=== PATIENT | male | born 1975 | race Hispanic/Latino ===

== ENCOUNTER 2023-10-20 07:44 | Inpatient (IN) | payer BC ==
[2023-10-20] MEDS ORDERED: ONDANSETRON 4 MG/2 ML VIAL ONE ×2 (08:10→12:23)
[2023-10-20] MEDS ORDERED: MORPHINE 4 MG/ML SYR ONE (08:10)
[2023-10-20] MEDS ORDERED: FAMOTIDINE 20 MG/2 ML VIAL IV ONE (08:11)
[2023-10-20] MEDS ORDERED: NA CHLORIDE 0.9% 1,000 ML ONE (08:11)
[2023-10-20 08:31] LABS: Albumin 3.3 g/dL (3.4-5.0); Albumin/Globulin Ratio 0.7 (1.1-1.8); Anion Gap 9.9 mEq/L (5.0-15.0); Bilirubin Total 1.5 mg/dL (0.2-1.0); Potassium 3.9 mEq/L (3.5-5.1); Protein, Total 8.3 g/dL (6.4-8.2)
[2023-10-20 08:38] LABS: Absolute Lymphocytes (CBC) 1.1 K/uL (0.7-4.9); Absolute Monocytes 1.4 K/uL (0.1-1.3); Absolute Neutrophil 18.8 K/uL (1.8-8.0); Basophils % 0.1 % (0-1.3); Hematocrit 42.9 % (39.6-49.0); Hemoglobin 14.3 g/dL (13.6-17.9); Lymphocytes % 5.3 % (15.3-44.8); MCH 30.1 pg (27.0-35.0); MCHC 33.3 g/dL (32.0-36.0); MCV 90.5 fL (80-100); Monocytes % 6.6 % (3.3-12.3); Platelets 242 thou/uL (152-406); RBC Red Blood Cell Count 4.74 M/uL (4.33-5.43); Red Cell Distribution Width 14.3 % (12.1-15.2)
[2023-10-20] MEDS ORDERED: IBUPROFEN 400 MG TAB ONE (08:53)
--- NOTE | 2023-10-20 09:13 | RAD REPORT ---
EXAM DESCRIPTION: CT - Abdomen Pelvis W Contrast - 10/20/2023 8:32 am CLINICAL HISTORY: Abdominal pain COMPARISON: none. TECHNIQUE: Computed axial tomography of the abdomen pelvis was obtained. 100 cc Isovue-300 was admin istered intravenously. Oral contrast was not requested which limits evaluation of bowel and appendix All CT scans are performed using dose optimization technique as appropriate and may include automated exposure control or mA/KV adjustment according to patient size. FINDINGS: Right lower lobe atelectasis The gallbladder is distended. Small amount of air is present within the gallbladder. Stranding is pre sent within the adjacent fat. Liver, spleen, pancreas, adrenals and kidneys unremarkable Normal appendix The wall of the distal descending colon/proximal sigmoid colon is thickened with mild to moderate str anding within the adjacent fat. Diverticula stem from the colon. IMPRESSION: Distended gallbladder containing air. Stranding within the adjacent fat. This probably i ndicates emphysematous cholecystitis Mild to moderate stranding adjacent to the distal descending colon/proximal sigmoid colon likely dive rticulitis. A colonic neoplasm although possible is considered less likely. Followup is recommended
--- NOTE | 2023-10-20 09:14 | RAD REPORT ---
EXAM DESCRIPTION: Laurie Single View10/20/2023 8:34 am CLINICAL HISTORY: Fever COMPARISON: none FINDINGS: The patient is in a poor degree of inspiration. Right lower lobe atelectasis present. Left lung appears clear. Heart is normal size
[2023-10-20 09:26] LABS: Blood Morphology Comment NOT SEEN (NOT SEEN); Platelet Estimate ADEQ; White Blood Cell Scan OK (OK)
--- NOTE | 2023-10-20 09:29 | RAD REPORT ---
EXAM DESCRIPTION: US - Abdomen Exam Limited - 10/20/2023 8:54 am CLINICAL HISTORY: Abdominal pain. COMPARISON: CT abdomen same date FINDINGS: Gallbladder is distended. A gallstone is not visualized. There is stranding within the adj acent fat. Small amount of air is present within the gallbladder. Limited evaluation the biliary tree secondary to overlying bowel gas with no gross abnormality IMPRESSION: Gallbladder distention. Stranding within the adjacent fat and air within the gallbladder may indicate emphysematous cholecyst itis
--- NOTE | 2023-10-20 10:00 | ER ---
Nurse's Notes [facility] Name: Juan Manuel Arciniega Jr Age: 47 yrs Sex: Male : 1975 Arrival Date: 10/20/2023 Time: 07:44 Bed 19 Private MD: Derek Kern C Diagnosis: Acute cholecystitis-emphysematous Presentation: 10/19 07:47 Chief complaint: Patient states: RUQ pain that began on Monday after eating fish aa5 tacos, vomited Monday night and no vomiting since then. Pt appears anxious during triage. 07:47 Coronavirus screen: At this time, the client does not indicate any symptoms associated aa5 with coronavirus-19. Ebola Screen: Patient denies travel to an Ebola-affected area in the 21 days before illness onset. Initial Sepsis Screen: Does the patient meet any 2 criteria? HR > 90 bpm. Does the patient have a suspected source of infection? No. Patient's initial sepsis screen is negative. Risk Assessment: Do you want to hurt yourself or someone else? Patient reports no desire to harm self or others. Onset of symptoms was September 2023. 07:47 Method Of Arrival: Ambulatory aa5 07:47 Acuity: SYLWIA 3 aa5 Historical: - Allergies: 07:47 No Known Allergies; aa5 - PMHx: 07:47 Anxiety; aa5 - PSHx: 07:47 None; aa5 - Immunization history:: Adult Immunizations unknown. - Social history:: Smoking status: Reported history of juuling and/or vaping. - Family history:: not pertinent. - Hospitalizations: : No recent hospitalization is reported. Screenin:23 [facility] ED Fall Risk Assessment (Adult) History of falling in the last 3 months, db including since admission No falls in past 3 months (0 pts) Confusion or Disorientation No (0 pts) Intoxicated or Sedated No (0 pts) Impaired Gait No (0 pts) Mobility Assist Device Used No (0 pt) Altered Elimination No (0 pt) Score/Fall Risk Level 0 - 2 = Low Risk Oriented to surroundings, Maintained a safe environment. Abuse screen: Denies threats or abuse. Denies injuries from another. Nutritional screening: No deficits noted. Tuberculosis screening: No symptoms or risk factors identified. Assessment: 08:00 General: Appears in no apparent distress. uncomfortable, Behavior is calm, cooperative. db Pain: Complains of pain in abdomen. Neuro: Level of Consciousness is awake, alert, obeys commands, Oriented to person, place, time, situation, Moves all extremities. Speech is normal. Cardiovascular: No deficits noted. Respiratory: Reports DIFFICULTY BREATHING DUE TO PAIN Airway is patent Respiratory effort is even, unlabored, Respiratory pattern is regular, symmetrical. GI: Abdomen is non-distended, obese, Bowel sounds present X 4 quads. Abd is soft Reports lower abdominal pain, upper abdominal pain, Patient currently denies diarrhea, nausea, vomiting. : No deficits noted. No signs and/or symptoms were reported regarding the genitourinary system. EENT: No deficits noted. No signs and/or symptoms were reported regarding the EENT system. Derm: No deficits noted. No signs and/or symptoms reported regarding the dermatologic system. Musculoskeletal: No deficits noted. No signs and/or symptoms reported regarding the musculoskeletal system. 08:00 Pain: Pain currently is 8 out of 10 on a pain scale. db 08:20 Reassessment: Patient appears in no apparent distress at this time. Patient and/or db family updated on plan of care and expected duration. Pain level reassessed. Patient is alert, oriented x 3, equal unlabored respirations, skin warm/dry/pink. 08:57 Reassessment: Patient appears in no apparent distress at this time. Patient and/or db family updated on plan of care and expected duration. Pain level reassessed. Patient is alert, oriented x 3, equal unlabored respirations, skin warm/dry/pink. Patient states feeling better. Patient states symptoms have improved. Pain: Pain currently is 2 out of 10 on a pain scale. 09:00 Reassessment: Patient appears in no apparent distress at this time. Patient and/or db family updated on plan of care and expected duration. Pain level reassessed. Patient is alert, oriented x 3, equal unlabored respirations, skin warm/dry/pink. 10:00 Reassessment: Patient appears in no apparent distress at this time. Patient and/or db family updated on plan of care and expected duration. Pain level reassessed. Patient is alert, oriented x 3, equal unlabored respirations, skin warm/dry/pink. General: Appears in no apparent distress. comfortable, Behavior is calm, cooperative. 11:00 Reassessment: Patient appears in no apparent distress at this time. Patient and/or db family updated on plan of care and expected duration. Pain level reassessed. Patient is alert, oriented x 3, equal unlabored respirations, skin warm/dry/pink. 11:58 Reassessment: Patient appears in no apparent distress at this time. Patient and/or db family updated on plan of care and expected duration. Pain level reassessed. Patient is alert, oriented x 3, equal unlabored respirations, skin warm/dry/pink. [employer] AT BEDSIDE QUESTIONS ANSWERED AND REPORT GIVEN. 11:58 Reassessment: Patient appears in no apparent distress at this time. Patient and/or db family updated on plan of care and expected duration. Pain level reassessed. Patient is alert, oriented x 3, equal unlabored respirations, skin warm/dry/pink. General: Appears in no apparent distress. comfortable. Vital Signs: 07:47 BP 126 / 76; Pulse 120; Resp 20 S; Temp 99(O); Pulse Ox 95% on R/A; Weight 127.01 kg aa5 (R); Height 5 ft. 9 in. (R); Pain 7/10; 08:00 BP 134 / 81; Pulse 111; Resp 20; Pulse Ox 95% ; db 09:30 BP 121 / 84; Pulse 104; Resp 18; Pulse Ox 95% on R/A; db 10:30 BP 124 / 86; Pulse 94; Resp 18; Pulse Ox 95% on R/A; db 11:30 BP 103 / 68; Pulse 93; Resp 20; Pulse Ox 95% ; db 07:47 Body Mass Index 41.35 (127.01 kg, 175.26 cm) aa5 07:47 Pain Scale: Adult aa5 Henrique Coma Score: 08:00 Eye Response: spontaneous(4). Motor Response: obeys commands(6). Verbal Response: db oriented(5). Total: 15. ED Course: 07:47 Patient arrived in ED. rg4 07:47 Derek Kern MD is Private Physician. rg4 07:47 Darion Alcazar MD is Attending Physician. rn 07:47 Arm band placed on Patient placed in an exam room, on a stretcher. aa5 08:00 Triage completed. aa5 08:00 Lisa Isaacs, RONI is Primary Nurse. db 08:08 Initial lab(s) drawn, by me, sent to lab. Inserted saline lock: 20 gauge in right db antecubital area, using aseptic technique. Blood collected. 08:08 X-ray(s) taken. RN MOBILE AT BEDSIDE. db 08:23 Patient has correct armband on for positive identification. Bed in low position. Call db light in reach. Side rails up X2. Pulse ox on. NIBP on. 08:23 Provided Education on: CT, BLOOD DRAW, PAIN MEDICATIONS. db 08:[address] via wheelchair. db 08:26 Patient maintains SpO2 saturation greater than 95% on room air. db 08:34 CT Abd/Pelvis - IV Contrast Only In Process Unspecified. EDMS 08:36 XRAY Chest (1 view) In Process Unspecified. EDMS 08:55 US Abdomen Limited In Process Unspecified. EDMS 08:[address] from [address]. db 09:59 Derek Kern MD is Hospitalizing Provider. rn 11:00 Awaiting surgery. db 11:00 No provider procedures requiring assistance completed. Patient admitted, IV remains in db place. Administered Medications: 08:12 Drug: NS 0.9% IV 1000 ml IV at 1 bolus Per protocol; 1000 mL bolus Route: IV; Rate: 1 db bolus; Site: right antecubital; 12:02 Follow up: Response: No adverse reaction; IV Status: Completed infusion; IV Intake: db 1000ml 08:16 Drug: Ondansetron IVP 4 mg IVP once; over 2 minutes Route: IVP; Site: right antecubital;db 12:02 Follow up: Response: No adverse reaction db 08:16 Drug: morphine IVP or IV 4 mg IVP once over 4 mins Route: IVP; Infused Over: 4 mins; db Site: right antecubital; 12:02 Follow up: Response: No adverse reaction db 08:17 Drug: Famotidine IVP 20 mg IVP once; dilute with 10 mL 0.9% NaCl; give over 2 minutes db Route: IVP; Site: right antecubital; 12:02 Follow up: Response: No adverse reaction db 08:55 Drug: Ibuprofen PO 800 mg PO once Route: PO; db 12:01 Follow up: Response: No adverse reaction db 10:33 Drug: Piperacillin-Tazobactam IVPB 3.375 grams IVPB once over 60 mins; (mix in NS 100 db mL) Route: IVPB; Infused Over: 60 mins; Site: right antecubital; 12:01 Follow up: Response: No adverse reaction; IV Status: Completed infusion; IV Intake: db 100ml Medication: 11:00 VIS not applicable for this client. db Intake: 12:01 IV: 100ml; Total: 100ml. db 12:02 IV: 1000ml; Total: 1100ml. db Outcome: 09:59 Decision to Hospitalize by Provider. rn 12:00 Admitted to OR accompanied by nurse, via stretcher, db 12:00 Condition: stable 12:00 Instructed on the need for admit, 12:04 Patient left the ED. db Signatures: Dispatcher [employer] EDMS Darion Alcazar MD MD rn Calderon, Audri RN RN [email or web address] Trena Polk rg4 Lisa Isaacs RN RN db Corrections: (The following items were deleted from the chart) 08:00 07:47 BP 126 / 76; Pulse 120bpm; Resp 20bpm; Spontaneous; Pulse Ox 95% RA; Temp 99F aa5 Oral; 127.01 kg Reported; Height 5 ft. 9 in. Reported; BMI: 41.3; aa5 08:57 08:00 General: Appears in no apparent distress. uncomfortable, Behavior is calm, db cooperative, db 08:58 08:00 Respiratory: Reports DIFFICULTY BREATHING DUE TO PAIN Airway is patent db Respiratory effort is even, unlabored, Respiratory pattern is regular, symmetrical, db 12:01 12:00 Awaiting surgery, db db
--- NOTE | 2023-10-20 10:00 | EDPHYS ---
Physician Documentation [facility] Name: Juan Manuel Arciniega Jr Age: 47 yrs Sex: Male : 1975 Arrival Date: 10/20/2023 Time: 07:44 Bed 19 Private MD: Derek Kern C ED Physician Darion Alcazar HPI: 10/19 07:59 This 47 yrs old Male presents to ER via Unassigned with complaints of rn Abdominal Pain. 07:59 The patient presents with abdominal pain in the right upper quadrant. Onset: The rn symptoms/episode began/occurred 2 day(s) ago. The symptoms do not radiate. Associated signs and symptoms: Pertinent positives: nausea and vomiting, fever, Pertinent negatives: blood in stools, chest pain. The symptoms are described as sharp, stabbing. Modifying factors: The symptoms are alleviated by nothing, the symptoms are aggravated by pressure. Severity of pain: At its worst the pain was moderate in the emergency department the pain is unchanged. The patient has not experienced similar symptoms in the past. Patient reports right upper quadrant abdominal pain that began 2 days ago after eating shrimp tacos. Patient states pain is intermittent, associated with single episode of vomiting, fever present. Reports pain in abdomen with deep breath. No cough or chest pain.. Historical: - Allergies: 07:47 No Known Allergies; aa5 - PMHx: 07:47 Anxiety; aa5 - PSHx: 07:47 None; aa5 - Immunization history:: Adult Immunizations unknown. - Social history:: Smoking status: Reported history of juuling and/or vaping. - Family history:: not pertinent. - Hospitalizations: : No recent hospitalization is reported. ROS: 07:59 Constitutional: Positive for fever Cardiovascular: Negative for chest pain, rn palpitations, and edema, Respiratory: Negative for shortness of breath, cough, wheezing Abdomen/GI: Positive for right upper quadrant abdominal pain and vomiting MS/Extremity: Negative for injury and deformity, Skin: Negative for injury, rash, and discoloration, Neuro: Negative for headache, weakness, numbness, tingling, and seizure, Exam: 07:59 Constitutional: This is a well developed, well nourished patient who is awake, alert, rn appears anxious Head/Face: Normocephalic, atraumatic. Cardiovascular: Tachycardic, regular Respiratory: Mild tachypnea, diminished breath sounds right lower lung khanna Abdomen/GI: Soft, positive right upper quadrant tenderness and guarding, no peritoneal signs MS/ Extremity: Pulses equal, no cyanosis. Neuro: Awake and alert, GCS 15 Vital Signs: 07:47 BP 126 / 76; Pulse 120; Resp 20 S; Temp 99(O); Pulse Ox 95% on R/A; Weight 127.01 kg aa5 (R); Height 5 ft. 9 in. (R); Pain 7/10; 08:00 BP 134 / 81; Pulse 111; Resp 20; Pulse Ox 95% ; db 09:30 BP 121 / 84; Pulse 104; Resp 18; Pulse Ox 95% on R/A; db 10:30 BP 124 / 86; Pulse 94; Resp 18; Pulse Ox 95% on R/A; db 11:30 BP 103 / 68; Pulse 93; Resp 20; Pulse Ox 95% ; db 07:47 Body Mass Index 41.35 (127.01 kg, 175.26 cm) aa5 07:47 Pain Scale: Adult aa5 Barney Coma Score: 08:00 Eye Response: spontaneous(4). Motor Response: obeys commands(6). Verbal Response: db oriented(5). Total: 15. MDM: 07:47 Patient medically screened. rn 09:54 Differential diagnosis: appendicitis, bowel obstruction, cholecystitis, Cholelithiasis, rn diverticulitis, gastritis, non-specific abd pain, pancreatitis, Peptic Ulcer Disease. Data reviewed: vital signs, nurses notes, lab test result(s), radiologic studies, CT scan, ultrasound, and as a result, I will admit patient. Consideration of Admission/Observation Patient was admitted/placed on observation. Escalation of care including admission/observation considered. Counseling: I had a detailed discussion with the patient and/or guardian regarding the historical points, exam findings, and any diagnostic results supporting the discharge/admit diagnosis, lab results, radiology results, the need for further work-up and treatment in the hospital. 10/19 07:56 Order name: CBC with Diff; Complete Time: 09:43 rn 10/19 07:56 Order name: CMP; Complete Time: 08:36 rn 10/19 07:56 Order name: Lipase; Complete Time: 08:36 rn 10/19 08:44 Order name: CBC Smear Scan; Complete Time: 09:43 EDMS 10/19 09:44 Order name: Blood Culture Adult (2) rn 10/19 09:44 Order name: Lactate w/ 2H reflex if indic.; Complete Time: 10:51 rn 10/19 09:44 Order name: Protime (+inr); Complete Time: 10:51 rn 10/19 09:44 Order name: Ptt, Activated; Complete Time: 10:51 rn 10/19 07:56 Order name: CT Abd/Pelvis - IV Contrast Only; Complete Time: 09:43 rn 10/19 07:56 Order name: US Abdomen Limited; Complete Time: 09:43 rn 10/19 07:56 Order name: XRAY Chest (1 view); Complete Time: 09:43 rn 10/19 09:44 Order name: EKG; Complete Time: 09:45 rn 10/19 11:34 Order name: CONS Physician Consult EDAZ 10/19 07:56 Order name: IV Saline Lock; Complete Time: 08:18 rn 10/19 07:56 Order name: Labs collected and sent; Complete Time: 08:18 rn 10/19 09:44 Order name: Accucheck; Complete Time: 10:27 rn 10/19 09:44 Order name: Cardiac monitoring; Complete Time: 10:27 rn 10/19 09:44 Order name: EKG - Nurse/Tech; Complete Time: 10:17 rn 10/19 09:44 Order name: IV Saline Lock - Large Bore; Complete Time: 10:27 rn 10/19 09:44 Order name: O2 Per Protocol; Complete Time: 10:27 rn 10/19 09:44 Order name: O2 Sat Monitoring; Complete Time: 10:27 rn 10/19 09:44 Order name: Vital Signs; Complete Time: 10:27 rn 10/19 09:45 Order name: NPO; Complete Time: 10:27 rn Administered Medications: 08:12 Drug: NS 0.9% IV 1000 ml IV at 1 bolus Per protocol; 1000 mL bolus Route: IV; Rate: 1 db bolus; Site: right antecubital; 12:02 Follow up: Response: No adverse reaction; IV Status: Completed infusion; IV Intake: db 1000ml 08:16 Drug: Ondansetron IVP 4 mg IVP once; over 2 minutes Route: IVP; Site: right antecubital;db 12:02 Follow up: Response: No adverse reaction db 08:16 Drug: morphine IVP or IV 4 mg IVP once over 4 mins Route: IVP; Infused Over: 4 mins; db Site: right antecubital; 12:02 Follow up: Response: No adverse reaction db 08:17 Drug: Famotidine IVP 20 mg IVP once; dilute with 10 mL 0.9% NaCl; give over 2 minutes db Route: IVP; Site: right antecubital; 12:02 Follow up: Response: No adverse reaction db 08:55 Drug: Ibuprofen PO 800 mg PO once Route: PO; db 12:01 Follow up: Response: No adverse reaction db 10:33 Drug: Piperacillin-Tazobactam IVPB 3.375 grams IVPB once over 60 mins; (mix in NS 100 db mL) Route: IVPB; Infused Over: 60 mins; Site: right antecubital; 12:01 Follow up: Response: No adverse reaction; IV Status: Completed infusion; IV Intake: db 100ml Disposition Summary: 10/20/23 09:59 Hospitalization Ordered Notes: Hospitalization Status: Inpatient Admission rn Provider: Derek Kern rn Location: Telemetry/MedSurg (Inpatient) rn Condition: Stable rn Problem: new rn Symptoms: have improved rn Bed/Room Type: Standard rn Room Assignment: rn Diagnosis - Acute cholecystitis - emphysematous rn Forms: - Medication Reconciliation Form rn - SBAR form rn - Leadership Thank You Letter rn Signatures: Dispatcher [employer] Darion Pepe MD MD rn Calderon, Audri RN RN Lisa Caprio RN RN db
[2023-10-20] MEDS ORDERED: NA CHLORIDE 0.9% 50 ML ONE (10:09)
[2023-10-20] MEDS ORDERED: PIPERACIL/TAZO 3.375 GM VIAL IV ONE (10:09)
[2023-10-20 10:48] LABS: PT Prothrombin Time 16.4 SECONDS (9.5-12.5); PTT, Activated Partial Thromb 30.1 SECONDS (24.3-36.9); Protime INR 1.51
[2023-10-20] MEDS ORDERED: ONDANSETRON 4 MG/2 ML VIAL IV PRN (11:57)
[2023-10-20] MEDS: Ringers Lactate 1,000 ML IV ONE ×2 (12:10→13:55)
[2023-10-20] MEDS ORDERED: LIDOCAINE 2% MPF 5 ML VIAL ONE (12:23)
[2023-10-20] MEDS ORDERED: dexAMETHasone 10 MG/ML VIAL ONE (12:23)
[2023-10-20] MEDS ORDERED: propofoL 200 MG/20 ML VIAL IV ONE (12:23)
[2023-10-20] MEDS ORDERED: KETOROLAC 30 MG/ML INJ ONE (12:23)
[2023-10-20] MEDS ORDERED: MIDAZOLAM HCL 2 MG/2 ML INJ ONE (12:24)
[2023-10-20] MEDS ORDERED: FENTANYL CITR 100 MCG/2 ML ONE (12:24)
[2023-10-20] MEDS ORDERED: ROCURONIUM 50 MG/5 ML VIAL IV ONE ×4 (12:25→16:00)
[2023-10-20] MEDS: SUCCINYLCHOLINE 20 MG/ML (10 ML) IV ONE (12:30)
--- NOTE | 2023-10-20 12:33 | P.HP ---
Date of Service: 10/20/23 PC: This 47-year-old male presented to the emergency room with severe right upper quadrant abdominal pain for diagnosis and treatment. HPC: Patient says he has been in otherwise good health, but suddenly after he ate something last night, began experiencing pain, located in the right upper quadrant, would not go away. Describes it as severe, going straight through to his back. 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 No chest pain or palpitations. Snores but denies sleep apnea. Good exercise tolerance. O/E: Awake alert vital signs are stable HEENT: Not jaundiced Chest: Air entry equal bilaterally Abd: Mild right upper quadrant tenderness at this time [place]: Intact Data: Has a large distended gallbladder, elevated white cell count Impression: Acute cholecystitis Plan: I will taken the operating room for laparoscopic possible open cholecystectomy with a cholangiogram. The risk of this procedure have been discussed. The possibility of bleeding, infection, injury to bile ducts blood vessels and intestines has been described. The possible need for an open and or further surgeries or procedures was discussed. He understands and wants to proceed.
--- NOTE | 2023-10-20 12:41 | P.HP ---
Date of Service: 10/20/23
[2023-10-20] MEDS: SUGAMMADEX SODIUM 200 MG/2 ML VIAL IV ONE (15:31)
[2023-10-20 17:07] VITALS: O2SAT 95
[2023-10-20] MEDS: PIPER TAZO 3.375 GM in NA CHLORIDE 0.9% 100 ML IV SCH (17:31)
[2023-10-20 18:03] VITALS: BMI 41.3
--- NOTE | 2023-10-20 19:44 | RAD REPORT ---
EXAM DESCRIPTION: RAD - Cholangiogram Oper-Xray Or - 10/20/2023 7:34 pm CLINICAL HISTORY: LAP PATT COMPARISON: Abdomen Exam Limited dated 10/20/2023 FINDINGS: The biliary tree is not well evaluated on the submitted images. Total fluoro time: 0.1 minutes
--- NOTE | 2023-10-20 19:55 | P.OP ---
Preoperative diagnosis: Acute on chronic cholecystitis with cholelithiasis Postoperative diagnosis: The same with gangrene of the gallbladder Primary procedure: Laparoscopic cholecystectomy Secondary procedure: Attempted cholangiogram Anesthesia: General Estimated blood loss: Less than 50 cc Specimen: 1 gallbladder and contents Operative Technique: The patient brought the operating room and placed supine on the table. After the induction of adequate general endotracheal anesthesia, there the abdomen was prepped with a DuraPrep solution, and he was draped in the usual aseptic manner. Attention was turned towards the umbilicus. The area was injected with 0.225% Marcaine. A skin incision was made. The Visiport was used to enter the peritoneal cavity and created pneumoperitoneum to approximately 12 mmHg. Under direct vision a 5 mm trocar was placed in the upper midline, and 2 other 5 mm trocars on the right lateral side side of the abdomen. The patient was placed in reverse Trendelenburg. The table was tilted to the left. We could now visualize the right upper quadrant. It was obvious that there was an inflammatory process around the right lobe of the liver. The omentum was seen encircling this bulging area which was most likely the gallbladder. Further omental adhesions lay on top of the liver up behind posteriorly. These adhesions were gently taken down using blunt and sharp dissection. The gallbladder was identified. It was noted to be markedly distended with areas of patchy necrosis on the serosal surface of the gallbladder itself. We were able to place an aspirating needle into the gallbladder and aspirate the contents. This allowed us to place a grasper on the gallbladder wall so that we could direct it during dissection. At this point the gallbladder having been elevated we did another graft grasper was placed down by Elena's pouch. It is remarkable how large his gallbladder appears to be in the intraoperative interim. The applying lateral traction we were finally able to expose out both the cystic duct and artery. The artery was clipped and divided in the usual manner. Attention was turned towards the cystic duct which appeared to be quite short. We attempted to obtain a cholangiogram. We were unsuccessful in filling the common bile duct. This is most likely due to valves that were quite noticeable in the cystic duct itself. The catheter was removed. Clips were placed on the distal portion of the cystic duct. They did not set well and due to the size and wideness of the cystic duct I felt that a Liga LigaSure would be beneficial. 1 was placed using chromic. Clips were also placed on the distal portion of the cystic duct. This markedly inflamed gallbladder was now slowly dissected free from the liver bed. It was then placed into an Endo Catch. We brought it out through the umbilicus. Attention was turned back towards the right upper quadrant. Due to the amount of inflammation and retrograde grade reperfusion there was a little weak EP on in that area. No profuse or pumping blood was noted. Having cleaned it up with the electrocautery, the 10 mm drain was placed into Morison's pouch and brought out through the most lateral 5 mm trocar site. The abdomen was now irrigated with a copious amount of a saline solution. At this point the umbilical trocar site was approximated using 3 interrupted sutures of absorbable suture material. The pneumoperitoneum was then collapsed, the trocars removed, and shaniqua were applied to the skin. At the end of the procedure he was stable and sent to the recovery room. Needle sponge instrument count were correct. [address] is in place. Estimated blood loss less than 50 cc. Complications: None Drain(s): MARI drain Transferred to: Recovery Room Condition: Good
[2023-10-20] MEDS: D5 0.45 NS 1,000 ML IV SCH (20:00)
--- NOTE | 2023-10-20 20:31 | HP ---
Date of Admission: 10/20/2023 Chief Complaint: Abdominal pain and trouble breathing. History Of Present Illness: A 47-year-old male patient who is morbidly obese started to have right upper quadrant abdominal pain, night before last. The patient thought that this was after he ate some food and did not seek any medical attention for that and over period of last day and a half or so, his pain has gotten worse to the extent that he had one episode of nausea, vomiting and has been having chills and this morning with worsening of the pain, he felt like he had trouble breathing, so he came into emergency room. After he was evaluated, I was contacted requesting admission to the hospital with acute cholecystitis. I saw him in the emergency room. The patient denies any diarrhea. Allergies: NO KNOWN ALLERGIES. Medications: Bupropion 150 mg daily and Escitalopram 20 mg daily. Review of Systems: GI: As mentioned above. Constitutional: As mentioned above. All other systems reviewed and negative. Past Medical History: Significant for anxiety, depression, hyperlipidemia, gastroesophageal reflux disease. Past Surgical History: Negative. Family History: Father has hypertension, diabetes and hyperlipidemia. Mother had cirrhosis of liver. Social History: Negative for smoking and alcohol use. Physical Examination: Vital Signs: When he first came into emergency room, blood pressure 126/76, pulse 120, respiratory rate 20, oxygen saturation 95%, height 5 feet 9 inches, weight 127 kg. General: Awake, alert, oriented, not in distress. HEENT: Head atraumatic, normocephalic. Conjunctivae nonerythematous. Sclerae white. Mouth, no thrush or edema noted. Ears/Nose, no mass, lesion, discharge noted. Neck: Supple. No JVD, lymph nodes, bruit, thyromegaly noted. Lungs: Bilateral good equal air entry. Clear to auscultation. No rhonchi. No rales. Heart: Normal heart sounds, no murmur or gallop. Abdomen: Soft, bowel sounds normal. No guarding, rigidity, distention. Morbidly obese and presence of right upper quadrant tenderness, no rebound tenderness. Extremities: No leg edema. No calf tenderness. Skin: No rash, ulcer, cellulitis. Lymphatics: No lymph node enlargement in neck, supraclavicular, infraclavicular region. Neuro: No focal neurological deficit. Chest: Unremarkable. External Genitalia: Deferred. Rectal: Deferred. Laboratory Data: White count 21.4, hemoglobin 14.3, platelets 242. Sodium 135, potassium 3.9, chloride 108, bicarb 21, BUN 17, creatinine 1.19, glucose 120, total bilirubin 1.5, AST 22, ALT 40, alkaline phosphatase 122, lipase 21. His CAT scan of the abdomen and pelvis done in the emergency room shows distended gallbladder containing cpna-li-gggsnedk stranding around the distal descending colon, proximal sigmoid colon. An abdominal ultrasound limited to right upper quadrant shows gallbladder distention. Chest x-ray shows no acute abnormality. Impression: 1. Acute cholecystitis. 2. Rule out acute diverticulitis. 3. Anxiety. 4. Depression. 5. Gastroesophageal reflux disease. 6. Hyperlipidemia. Plan: We will go ahead and admit the patient to hospital for further evaluation and management of this problem. The patient is appropriate for inpatient and is expected to spend 2 midnights in hospital. We will keep the patient n.p.o., consult general surgeon application support developer, Dr. Morales and the patient will have cholecystectomy later today as per my discussion with the ER physician who has already communicated with Dr. Morales. We will keep him n.p.o., IV pain medication, nausea medication and antibiotics will be given per order. I have discussed with the patient regarding importance of moving his both lower extremities to try to reduce chances of any blood clot and we will order SCD for him. I have also discussed the CAT scan findings regarding possibility of diverticulitis, but he does not have any pain or tenderness in the left lower quadrant, so what we should do is obviously right now, he will receive antibiotic for this cholecystitis problem and if there is any diverticulitis, he should respond to that as well, but on an elective outpatient basis, patient should have colonoscopy 4-6 weeks from now and this recommendation was discussed with the patient today. I will see him tomorrow for followup. JORY/ANA Voice ID: [id number] KENY
[2023-10-20] MEDS: HYDROCODONE/APAP 7.5/325 MG TAB PO PRN (21:02)
[2023-10-20] MEDS: MORPHINE 4 MG/ML SYR IV PRN (22:14)
[2023-10-21 07:14] LABS: Absolute Lymphocytes (CBC) 0.6 K/uL (0.7-4.9); Absolute Monocytes 0.7 K/uL (0.1-1.3); Absolute Neutrophil 14.8 K/uL (1.8-8.0); Basophils % 0.1 % (0-1.3); Hematocrit 37.4 % (39.6-49.0); Hemoglobin 12.4 g/dL (13.6-17.9); Lymphocytes % 3.9 % (15.3-44.8); MCH 30.4 pg (27.0-35.0); MCHC 33.2 g/dL (32.0-36.0); MCV 91.6 fL (80-100); MPV 8.2 fL (7.6-11.3); Monocytes % 4.1 % (3.3-12.3); Neutrophils % 91.9 % (41.7-73.7); Platelets 210 thou/uL (152-406); RBC Red Blood Cell Count 4.08 M/uL (4.33-5.43); Red Cell Distribution Width 14.2 % (12.1-15.2)
[2023-10-21 07:30] LABS: Anion Gap 7.9 mEq/L (5.0-15.0); Magnesium 2.3 mg/dL (1.6-2.4); Potassium 3.9 mEq/L (3.5-5.1)
[2023-10-21] MEDS: D5 0.45 NS 1,000 ML IV SCH (08:44)
--- NOTE | 2023-10-21 11:28 | PN ---
Date of Progress Note: 10/21/2023 Subjective: The patient was seen this morning for followup. He was lying in bed, had surgery done i n the form of laparoscopic cholecystectomy for acute cholecystitis. Postoperatively, he has done wel l. No nausea. No vomiting. When he tried to move up in the bed just before I came in to see him th is morning, after he tried to reposition himself, he started to have some abdominal pain, but otherwi se he has done well. Objective: Vital Signs: Reviewed. HEENT: Unremarkable. Lungs: Clear to auscultation. Heart: Sounds normal. Abdomen: Soft. Bowel sounds normal. No guarding, rigidity. Minimal tenderness around the surgical site. No rebound tenderness. No abdominal distention. Extremities: No leg edema. Laboratory Data: White count 16.1, hemoglobin 12.4, platelets 210. Sodium 136, potassium 3.9, chlor sanna 106, bicarb 26, BUN 14, creatinine 1, glucose 122. Magnesium 2.3. Impression: 1.Acute cholecystitis, status post laparoscopic cholecystectomy. 2.Hyperlipidemia. 3.Anxiety. 4.Depression. Plan: The patient is doing very well after surgery and will continue current antibiotic, which is Zo syn. His IV fluid will be reduced to 50 cc/hour. He is tolerating diet well. Ambulation was encour aged. The patient has SCD in place for DVT prophylaxis. He was asking if he can take it off and he was advised that he should keep it on at nighttime for sure and during daytime, he can keep it off pr ovided he is exercising his leg while lying down in the bed as I have explained it to him as well as ambulation 5 to 6 times a day. Today, he was advised to ambulate in the hallway. We will repeat blo od work tomorrow. I will see him tomorrow with possibility of discharge to go home tomorrow depending on his condition. JORY/MODL Voice ID: [id number] Report ID: [id number]
--- NOTE | 2023-10-21 17:36 | P.PN ---
Date of Service: 10/21/23 S: Patient looks very well today, appears to be relatively comfortable. Was using his incentive spirometer as I walked in the room. No particular complaints. O: Vital signs are stable, minimal output of the MARI drain. Good effort on incentive spirometry. Voiding on his own. Pain appears to be controlled. A: Surgically stable status post laparoscopic cholecystectomy for acute on chronic cholecystitis with gangrene of the gallbladder. P: Patient is doing well today, pain appears to be controlled, good effort on incentive spirometer and walking around. Tolerating clear liquids at the moment. He is receiving IV antibiotics at the moment. Will most likely discharge the patient in the a.m. with pain medicine. I will probably remove the drain before he leaves, depending on the drainage amount. He will then follow-up with me in my office next week.
[2023-10-22 07:42] LABS: Absolute Basophils 0.1 K/uL (0-0.5); Absolute Eosinophils 0.2 K/uL (0-0.5); Absolute Lymphocytes (CBC) 1.2 K/uL (0.7-4.9); Absolute Monocytes 0.6 K/uL (0.1-1.3); Absolute Neutrophil 10.7 K/uL (1.8-8.0); Basophils % 0.5 % (0-1.3); Eosinophils % 1.7 % (0-4.4); Hematocrit 35.3 % (39.6-49.0); Hemoglobin 11.8 g/dL (13.6-17.9); Lymphocytes % 9.4 % (15.3-44.8); MCH 30.8 pg (27.0-35.0); MCHC 33.5 g/dL (32.0-36.0); MCV 91.9 fL (80-100); MPV 8.2 fL (7.6-11.3); Monocytes % 4.4 % (3.3-12.3); Platelets 212 thou/uL (152-406); RBC Red Blood Cell Count 3.84 M/uL (4.33-5.43); Red Cell Distribution Width 14.3 % (12.1-15.2)
[2023-10-22 09:28] LABS: Anion Gap 7.6 mEq/L (5.0-15.0); Magnesium 2.3 mg/dL (1.6-2.4); Potassium 3.6 mEq/L (3.5-5.1)
[2023-10-22] MEDS: ESCITALOPRAM 20 MG TAB PO SCH (11:12)
[2023-10-22] MEDS: BUPROPION HCL XL 150 MG TAB PO SCH (11:12)
--- NOTE | 2023-10-22 12:40 | DS ---
Date of Discharge: 10/22/2023 Disposition: The patient will be discharged to go home. Physical Examination: HEENT: Unremarkable. Lungs: Clear to auscultation. Heart: Sounds normal. Abdomen: Soft. Bowel sounds normal. No guarding, rigidity, tenderness, distention. Presence of dr jang tube in the right upper quadrant and has dark colored blood, small amount present. Extremities: No leg edema. Laboratory Data: Upon admission, white count 21.4, hemoglobin 14.3, platelets 242. Today, white cou nt 12.7, hemoglobin 11.8, platelets 212. Chemistry upon admission, sodium 135, potassium 3.9, chlori de 108, bicarb 21, BUN 17, creatinine 1.19, glucose 120, total bilirubin 1.5, AST of 22, ALT 40, dandre line phosphatase 122, lipase 21. Today, sodium 136, potassium 3.6, chloride 106, bicarb 26, BUN 15, creatinine 0.93, glucose 105, magnesium 2.3. Hospital Course: This is a 47-year-old pleasant male patient, came into emergency room with complain ts of abdominal pain and trouble breathing. Please see dictated H and P for more information. After patient was evaluated in the emergency room, he was admitted to the hospital with acute cholecystiti s. His CAT scan of the abdomen and pelvis showed distended gallbladder containing hbna-wy-qioackjv r ather distended gallbladder containing air with cewf-dt-mqaiwnie stranding around distal descending c olon and proximal sigmoid colon. Abdominal ultrasound showed gallbladder distention. Chest x-ray di d not show any abnormality. Dr. Morales who was fabrication lead from General surgery was consulted and the p atient had surgery done in form of laparoscopic cholecystectomy. Postoperatively, he has done very w ell. His CAT scan finding was discussed with the patient and his . He never had a colonoscopy b efore. He does not have left lower quadrant pain or tenderness, but if there is any evidence of dive rticulitis, obviously the antibiotic should help resolve that, but patient will definitely need to lorenzo ve a colonoscopy in 4-6 weeks and this was discussed with both of them upon admission as well as arnold sheirdan. The patient will see lpc on an outpatient basis to accomplish this. He is tolerat ing diet very well, ambulating well, and today he was asking about prescription for omeprazole as he takes dzkq-poy-pudhdvw medication 20 mg on a daily basis. The patient could not tell me how often do es he have heartburn or indigestion because he takes omeprazole every day, so what I have asked him t o do is to take omeprazole only as needed, and then to let me know on an outpatient basis to see how often does he have symptoms and if he has symptoms once a week or more often, then he should take it on a daily basis and at that time he can request prescription. Otherwise, if he does not need omepra zole, he should not take it because of long-term possible side effects of such medications. Final Diagnoses: 1.Acute cholecystitis. 2.Anemia, unspecified. 3.Gastroesophageal reflux disease. 4.Anxiety. 5.Depression. 6.Hyperlipidemia. Discharge Medications And Instructions: 1.Continue all prior home medications. 2.Take Augmentin 875 mg 2 times a day with food for 10 days. 3.Take xvmo-iep-drpoazf stool softener Colace 1-2 tablets by mouth daily as needed for constipation. 4.Tylenol with codeine, take 1 tablet by mouth 3 times a day as needed for more intense pain. 5.Take Tylenol 500 mg 1 tablet by mouth 4 times a day as needed for mild pain. 6.Prescription for Augmentin and Tylenol with codeine will be sent to the patient's pharmacy from my office. 7.Follow up with my office on 10/26/2023 and follow up with Dr. Morales as per his instructions. JORY/MODL Voice ID: [id number] Report ID: [id number]
--- NOTE | 2023-10-22 13:10 | P.PN ---
Date of Service: 10/22/23 S: Patient looks good today, tolerating a diet, has been up walking around. Great effort on his incentive spirometry. O: Vital signs are stable, minimal drainage out MARI drain A: Surgically stable P: Discharge home.
--- NOTE | 2023-10-22 13:13 | P.DS ---
Admission Date: 10/20/23 Discharge Date: 10/22/23 Primary Care Provider: Dr. Kern Disposition: ROUTINE DISCHARGE Discharge Condition: GOOD Consultations: Kavya Procedures: Laparoscopic cholecystectomy with intraoperative cholangiogram Brief History of Present Illness: Patient has been having abdominal pain at home. Pain however changed became markedly severe and he came to the emergency room for evaluation and treatment. On workup was found to have acute on chronic cholecystitis with cholelithiasis. Hospital Course: The patient after evaluation the emergency room was found to have acute on chronic cholecystitis with cholelithiasis. He was brought to the operating room where he underwent a laparoscopic cholecystectomy with a cholangiogram. He had a markedly inflamed gallbladder with areas of patchy gangrene. He was admitted postoperatively for observation and pain control as well as IV antibiotics. Today he is up ambulating, tolerating a diet, his pain is well-controlled. He will be discharged home. He does not require any further antibiotics at this time. The drain will be removed. Vital Signs/Physical Exam: Temp Pulse Resp BP Pulse Ox 97.8 F 85 18 109/69 97 10/22/23 08:00 10/22/23 08:00 10/22/23 08:00 10/22/23 08:00 10/22/23 08:00 Laboratory Data at Discharge: WBC 12.70 thou/uL (4.3-10.9) H 10/22/23 07:33 Hgb 11.8 g/dL (13.6-17.9) L 10/22/23 07:33 Hct 35.3 % (39.6-49.0) L 10/22/23 07:33 Plt Count 212 thou/uL (152-406) 10/22/23 07:33 PT 16.4 SECONDS (9.5-12.5) H 10/20/23 10:10 INR 1.51 10/20/23 10:10 APTT 30.1 SECONDS (24.3-36.9) 10/20/23 10:10 Sodium 136 mEq/L (136-145) 10/22/23 09:05 Potassium 3.6 mEq/L (3.5-5.1) 10/22/23 09:05 BUN 15 mg/dL (7-18) 10/22/23 09:05 Creatinine 0.93 mg/dL (0.70-1.30) 10/22/23 09:05 Glucose 105 mg/dL (74-106) 10/22/23 09:05 Magnesium 2.3 mg/dL (1.6-2.4) 10/22/23 09:05 Total Bilirubin 1.5 mg/dL (0.2-1.0) H 10/20/23 08:08 AST 22 U/L (15-37) 10/20/23 08:08 ALT 40 U/L (16-61) 10/20/23 08:08 Alkaline Phosphatase 122 U/L (45-117) H 10/20/23 08:08 Lipase 21 U/L (13-75) 10/20/23 08:08 Home Medications: Escitalopram [Lexapro*] 20 mg PO DAILY 10/20/23 Bupropion *Xl* [Wellbutrin XL] 150 mg PO DAILY 10/22/23 Omeprazole 20 mg PO DAILY 10/22/23 Physician Discharge Instructions: Continue all prior home medications. Take Augmentin 875 mg, 1 tablet by mouth two times a day with food for ten days. Take over the counter stool softener, Colace 1 to 2 tablets by mouth daily as needed for constipation. Take Tylenol with codeine, 1 tablet by mouth three times a day as needed for more intense pain. Take Tylenol 500 mg, 1 tablet by mouth four times a day as needed for mild pain. Prescription for Augmentin and Tylenol with Codeine will be sent to your pharmacy from Dr. Kern's office Followup with Dr. Majano as per his instruction Followup with Dr. Kern on 10/26/2023 Diet: Regular Activity: Continue incentive spirometer Followup: Yousif Kern MD [Primary Care Provider] -
[2023-10-22 14:18] VITALS: BP 106/59; TEMP 97
--- NOTE | 2023-10-23 14:27 | EKG ---
Test Date: 2023-10-20 Test Time: 10:12:08 Automotive Technician Instructor: KRISTEN MEASUREMENT RESULTS: Intervals: Rate: 96 TX: 132 QRSD: 94 QT: 360 QTc: 454 [place]: P: 42 TX: 132 QRS: 64 T: 1 INTERPRETIVE STATEMENTS: Normal sinus rhythm Normal ECG No previous ECG available for comparison Electronically Signed On 10-23-23 14:17:03 CDT by Devonte Mcdonald
== END 2023-10-22 15:25 | disposition home or self-care (01) | DRG 418 ==
LOC: ER 07:44 → ERHOLD 11:31 → 2ND 12:42
PROVIDERS: ADMIT Internal Medicine; ATTEND Internal Medicine
PROC: 0FT44ZZ Resection of Gallbladder, Percutaneous Endoscopic Approach (ICD-10-PCS; principal; 2023-10-20 12:00)
DX: K80.12 Calculus of gallbladder with acute and chronic cholecystitis without obstruction (principal); Z68.41 Body mass index [BMI] 40.0-44.9, adult; E66.01 Morbid (severe) obesity due to excess calories; K82.A1 Gangrene of gallbladder in cholecystitis; E78.5 Hyperlipidemia, unspecified; K21.9 Gastro-esophageal reflux disease without esophagitis; F41.9 Anxiety disorder, unspecified; F32.A Depression, unspecified; D64.9 Anemia, unspecified
CPT/HCPCS: 36415; 71045; 74177; 74300; 76705; 80048; 80053; 82947; 83605; 83690; 83735; 85025; 85610; 85730; 87040; 88304; 93005; 94010; 96361; 96365; 96375; 99285; J1100; J2001; J2250; J2405; J2543; J2704; J3010; J7030; J7120; J7799; Q9967

== ENCOUNTER 2023-11-05 18:47 | Emergency (ER) | payer BC ==
--- OUTSIDE RECORDS SUMMARY | 2023-11-05 18:50 | XMS REPORT | Continuity of Care Document ---
Author Name Unknown Address [address] [place] [address] [facility] Address [address] [place] [address] Care Team Providers Care Hat And Cap Drying Room Attendant Name Role Phone SISSON_C Attending Clinician Unavailable SISSON_C Admitting Clinician Unavailable Encounters Start Date/Time End Date/Time Encounter Type Admission Type Attending Clinicians Care Facility Care Department Encounter ID Source 2023-09-27 00:00:00 2023-09-27 00:00:00 Outpatient SISSON_C [facility] [id number] [facility]
[2023-11-05 20:02] LABS: Urine Bacteria <20 /HPF (<20); Urine Bilirubin NEGATIVE (Negative); Urine Blood 1+ (Negative); Urine Clarity Turbid (Clear); Urine Color Yellow (Yellow); Urine Culture Reflex Order NOT NEEDED; Urine Glucose NEGATIVE (Negative); Urine Ketones 1+ (Negative); Urine Micro Reflex YN NO BILL MICROSCOPIC; Urine Mucus 1+ /HPF (None Seen); Urine Nitrite NEGATIVE (Negative); Urine Protein 1+ (Negative); Urine Urobilinogen 3+ (Normal); Urine WBC <5 /HPF (<5)
[2023-11-05] MEDS ORDERED: NA CHLORIDE 0.9% 1,000 ML ONE (20:02)
[2023-11-05] MEDS ORDERED: KETOROLAC 30 MG/ML INJ ONE (20:02)
[2023-11-05 20:06] LABS: Absolute Basophils 0.1 K/uL (0-0.5); Absolute Eosinophils 0.1 K/uL (0-0.5); Absolute Lymphocytes (CBC) 1.5 K/uL (0.7-4.9); Absolute Monocytes 1.2 K/uL (0.1-1.3); Absolute Neutrophil 11.2 K/uL (1.8-8.0); Basophils % 0.4 % (0-1.3); Eosinophils % 0.5 % (0-4.4); Hematocrit 38.5 % (39.6-49.0); Hemoglobin 12.6 g/dL (13.6-17.9); Lymphocytes % 10.7 % (15.3-44.8); MCH 29.6 pg (27.0-35.0); MCHC 32.7 g/dL (32.0-36.0); MCV 90.7 fL (80-100); MPV 8.2 fL (7.6-11.3); Monocytes % 8.5 % (3.3-12.3); Neutrophils % 79.9 % (41.7-73.7); Platelets 298 thou/uL (152-406); RBC Red Blood Cell Count 4.24 M/uL (4.33-5.43); Red Cell Distribution Width 14.1 % (12.1-15.2)
[2023-11-05 20:22] LABS: ALT/SGPT 30 U/L (16-61); AST/SGOT 20 U/L (15-37); Albumin/Globulin Ratio 0.6 (1.1-1.8); Alkaline Phosphatase 136 U/L (45-117); Anion Gap 9.6 mEq/L (5.0-15.0); BUN Blood Urea Nitrogen 21 mg/dL (7-18); Bicarbonate 25 mEq/L (21-32); Bilirubin Direct 0.5 mg/dL (0-0.2); Bilirubin Indirect, Calculated 0.6 mg/dL (0.2-0.8); Bilirubin Total 1.1 mg/dL (0.2-1.0); Globulin 5.2 g/dL (2.3-3.5); Glomerular Filtration Rate 72 ml/min (=/>90); Glucose Level 104 mg/dL (74-106); Lipase 48 U/L (13-75); Magnesium 1.9 mg/dL (1.6-2.4); NT PRO-BNP 93 pg/mL (<125); Potassium 3.6 mEq/L (3.5-5.1); Protein, Total 8.2 g/dL (6.4-8.2); Sodium Level 132 mEq/L (136-145)
[2023-11-05 20:24] LABS: Troponin High Sensitivity < 3.0 pg/mL (<58.9)
--- NOTE | 2023-11-05 20:55 | RAD REPORT ---
EXAM DESCRIPTION: CT - Chest For Pe Angio - 11/05/2023 8:39 pm CLINICAL HISTORY: DYSPNEA COMPARISON: Abdomen Pelvis W Contrast dated 10/20/2023 TECHNIQUE: Dynamically enhanced axial 3 mm thick images of the chest were obtained during administra tion of <100> mL Isovue 370 IV contrast. Coronal and oblique reconstruction images were generated and reviewed. Exam utilizes a protocol for optimal evaluation of pulmonary arterial tree. Maximum intensity projections 3D imaging was utilized All CT scans are performed using dose optimization technique as appropriate and may include automated exposure control or mA/KV adjustment according to patient size. FINDINGS: Chest Wall: No suspicious thyroid nodules or pathologic lymphadenopathy. Lungs: Consolidative airspace disease present in the right lower lobe. Pleura: No significant effusions or pneumothorax. Mediastinum/aissatou: No pathologic lymphadenopathy. Pulmonary arteries/Aorta: Nondiagnostic for the purposes of detection of pulmonary emboli due to poor contrast opacification of pulmonary arteries. No aortic aneurysm. Heart: No significant pericardial effusion. Normal heart size. Upper abdomen: See same-day CT of the abdomen. Bones: No acute abnormality. IMPRESSION: Nondiagnostic study for the purposes of pulmonary embolus detection. The pulmonary arter ies are poorly opacified. Mild right lower lobe consolidation which has slightly increased since 09/29 and could reflect pneumonia.
--- NOTE | 2023-11-05 21:01 | RAD REPORT ---
EXAM DESCRIPTION: CTAbdomen Pelvis W Contrast - 11/05/2023 8:39 pm CLINICAL HISTORY: ABD PAIN COMPARISON: Abdomen Pelvis W Contrast dated 10/20/2023 TECHNIQUE: CT of the abdomen and pelvis was performed. All CT scans are performed using dose optimization technique as appropriate and may include automated exposure control or mA/KV adjustment according to patient size. FINDINGS: Lower chest: See same-day CT of the chest. Liver: Hepatic steatosis Biliary: Gas and fluid containing collection at the gallbladder fossa measuring 7.9 x 5.3 cm. Cholecy stectomy clips noted. Stomach: No significant focal abnormality. Duodenum: No significant focal abnormality. Pancreas: No significant abnormality. Spleen: No significant abnormality. Adrenal: No suspicious lesions. Kidney/ureter: No hydronephrosis. No renal calculi. Retroperitoneum: No retroperitoneal adenopathy. Vascular: No aneurysm. Bowel: Wall thickening and stranding at the proximal sigmoid is similar to 10/20/2023.. No bowel obst ruction. Diverticulosis. Peritoneum: No ascites or free air. Bladder: Grossly unremarkable. Reproductive: No adnexal masses. Bones: No acute fracture. Other: n/a IMPRESSION: 1. Gas and fluid collection at the gallbladder fossa suspicious for an abscess, rather t rodriguez biloma given the volume of gas. 2. Wall thickening and stranding at the proximal sigmoid similar to 10/20/23 likely reflects either a short segment colitis versus colonic neoplasm. Colonoscopy is recommended when the patient's conditio n permits.
--- NOTE | 2023-11-05 21:21 | ER ---
Nurse's Notes [facility] Name: Juan Manuel Arciniega Jr Age: 47 yrs Sex: Male : 1975 Arrival Date: 11/05/2023 Time: 18:47 Bed 19 Private MD: Derek Kern C Diagnosis: Postoperative abscess;Sepsis Presentation: 11/04 19:02 Chief complaint: Patient states: Feeling short of breath and dizziness since around bm8 noon today. Coronavirus screen: Client denies travel out of the [place] in the last 14 days. At this time, the client does not indicate any symptoms associated with coronavirus-19. Ebola Screen: Patient negative for fever greater than or equal to 101.5 degrees Fahrenheit, and additional compatible Ebola Virus Disease symptoms Patient denies exposure to infectious person. Patient denies travel to an Ebola-affected area in the 21 days before illness onset. No symptoms or risks identified at this time. Initial Sepsis Screen: Does the patient meet any 2 criteria? No. Patient's initial sepsis screen is negative. Does the patient have a suspected source of infection? No. Patient's initial sepsis screen is negative. Risk Assessment: Do you want to hurt yourself or someone else? Patient reports no desire to harm self or others. Onset of symptoms was November 05, 2023 at 12:00. 19:02 Method Of Arrival: Ambulatory bm8 19:02 Acuity: SYLWIA 3 bm8 Triage Assessment: 19:06 General: Appears in no apparent distress. comfortable, Behavior is calm, cooperative, bm8 appropriate for age. Pain: Complains of pain in right upper quadrant Pain radiates to right lower quadrant Pain currently is 6 out of 10 on a pain scale. Quality of pain is described as pressure. EENT: No deficits noted. No signs and/or symptoms were reported regarding the EENT system. Neuro: No deficits noted. Level of Consciousness is awake, alert, obeys commands, Oriented to person, place, time, situation, Appropriate for age. Cardiovascular: Reports shortness of breath. Respiratory: Reports shortness of breath pain with respiration Onset: The symptoms/episode began/occurred today, the patient has moderate shortness of breath. GI: No deficits noted. No signs and/or symptoms were reported involving the gastrointestinal system. GI: No deficits noted. Reports lower abdominal pain, upper abdominal pain. : No deficits noted. No signs and/or symptoms were reported regarding the genitourinary system. Derm: No deficits noted. No signs and/or symptoms reported regarding the dermatologic system. Historical: - Allergies: 19:04 No Known Allergies; bm8 - Home Meds: 19:04 bupropion HCl 150 mg Oral tablet, sustained-release 12 hr 1 tab once [Active]; bm8 escitalopram oxalate 20 mg oral tablet 1 tab once [Active]; omeprazole 20 mg Oral capsule,delayed release (e.c.) 1 cap once [Active]; - PMHx: 19:06 Anxiety; gerd (Anxiety); bm8 - PSHx: 19:06 Cholecystectomy; bm8 - Immunization history:: Adult Immunizations up to date. - Infectious Disease History:: Denies. - Social history:: Smoking status: Patient denies any tobacco usage or history of. - Family history:: not pertinent. Screenin:16 [facility] ED Fall Risk Assessment (Adult) History of falling in the last 3 months, tl4 including since admission No falls in past 3 months (0 pts) Confusion or Disorientation No (0 pts) Intoxicated or Sedated No (0 pts) Impaired Gait No (0 pts) Mobility Assist Device Used No (0 pt) Altered Elimination No (0 pt) Score/Fall Risk Level 0 - 2 = Low Risk Oriented to surroundings, Maintained a safe environment, Educated pt \T\ family on fall prevention, incl call for assistance when getting out of bed, Assessed \T\ reinforced patient's understanding of fall precautions, Hourly rounding (assess needs \T\ fall precautionary measures) done, Used ambulatory aids as needed (educated on \T\ assisted with), Used gait belt as appropriate. Abuse screen: Denies threats or abuse. Denies injuries from another. Nutritional screening: No deficits noted. Tuberculosis screening: No symptoms or risk factors identified. Assessment: 20:15 General: Appears in no apparent distress. Behavior is calm, cooperative. Pain: tl4 Complains of pain in abdomen. Neuro: Level of Consciousness is awake, alert, obeys commands, Oriented to person, place, time, situation, Moves all extremities. Gait is steady, Speech is normal, Reports dizziness, headache. Cardiovascular: Denies chest pain, palpitations, syncope, Capillary refill < 3 seconds Patient's skin is warm and dry. Rhythm is sinus rhythm. Respiratory: Reports shortness of breath Airway is patent Respiratory effort is even, unlabored, Respiratory pattern is regular, symmetrical, Breath sounds are clear bilaterally. GI: Reports upper abdominal pain. : No deficits noted. No signs and/or symptoms were reported regarding the genitourinary system. EENT: No deficits noted. No signs and/or symptoms were reported regarding the EENT system. Derm: No deficits noted. No signs and/or symptoms reported regarding the dermatologic system. Musculoskeletal: No deficits noted. No signs and/or symptoms reported regarding the musculoskeletal system. 23:23 Reassessment: Patient and/or family updated on plan of care and expected duration. Pain tl4 level reassessed. Patient is alert, oriented x 3, equal unlabored respirations, skin warm/dry/pink. Pt states pain is getting worse. Dr. Pierson aware. 23:57 Reassessment: Report called to RONI Joe. tl4 11/05 00:06 Reassessment: Patient appears in no apparent distress at this time. Patient and/or bm8 family updated on plan of care and expected duration. Pain level reassessed. Patient is alert, oriented x 3, equal unlabored respirations, skin warm/dry/pink. GI: Abdomen is flat, non-distended, Bowel sounds present X 4 quads. Abdomen is tender to palpation in right upper quadrant. Vital Signs: 11/04 19:02 BP 122 / 77; Pulse 104; Resp 18; Temp 99.9; Pulse Ox 94% on R/A; Weight 131.54 kg; bm8 Height 5 ft. 9 in. ; Pain 6/10; 20:18 BP 109 / 74; Pulse 99; Resp 16; Pulse Ox 97% on R/A; tl4 21:00 BP 104 / 67; Pulse 92; Resp 16; Pulse Ox 96% on R/A; tl4 22:00 BP 101 / 64; Pulse 83; Resp 25; Pulse Ox 95% ; Pain 8/10; tl4 23:22 BP 98 / 65; Pulse 82; Resp 16; Pulse Ox 94% ; Pain 8/10; tl4 11/05 00:00 BP 99 / 62; Pulse 81; Resp 20; Temp 99.9; Pulse Ox 94% ; Pain 4/10; bm8 11/04 19:02 Body Mass Index 42.83 (131.54 kg, 175.26 cm) bm8 11/04 19:02 Pain Scale: Adult bm8 22:00 Pain Scale: Adult tl4 23:22 Pain Scale: Adult tl4 11/05 00:00 Pain Scale: Adult bm8 Vitals: 11/04 20:18 Cardiac Rhythm Assessment Regular Sinus rhythm. tl4 Henrique Coma Score: 11/05 00:00 Eye Response: spontaneous(4). Motor Response: obeys commands(6). Verbal Response: bm8 oriented(5). Total: 15. ED Course: 11/04 18:50 Patient arrived in ED. mr 18:50 Derek Kern MD is Private Physician. mr 18:56 Elie Pierson MD is Attending Physician. rt 19:02 Timoteo Owens, RONI is Primary Nurse. bm8 19:04 Triage completed. bm8 19:06 Arm band placed on left wrist. Patient placed in an exam room, on a stretcher. bm8 19:35 Basic Metabolic Panel Sent. tl4 19:35 CBC with Diff Sent. tl4 19:35 LFT's Sent. tl4 19:35 Magnesium Sent. tl4 19:35 NT PRO-BNP Sent. tl4 19:35 Troponin HS Sent. tl4 19:35 Lipase Sent. tl4 20:14 Basic Metabolic Panel Sent. tl4 20:14 LFT's Sent. tl4 20:14 Magnesium Sent. tl4 20:14 NT PRO-BNP Sent. tl4 20:14 Troponin HS Sent. tl4 20:17 Patient has correct armband on for positive identification. Placed in gown. Bed in low tl4 position. Call light in reach. Side rails up X2. Adult w/ patient. Provided Education on: ED process. Client placed on continuous cardiac and pulse oximetry monitoring. NIBP monitoring applied. night monitor on. Door closed. Noise minimized. Lights dimmed. Moved to private room. Warm blanket given. 20:17 No provider procedures requiring assistance completed. tl4 20:17 Initial lab(s) drawn, by me, sent to lab. Urine collected: clean catch specimen. tl4 Inserted saline lock: 20 gauge in right forearm, using aseptic technique. Blood collected. 20:41 CT Chest For PE Angio In Process Unspecified. EDMS 20:41 CT Abd/Pelvis - IV Contrast Only In Process Unspecified. EDMS 21:[address] [facility] Transfer [facility] to start transfer. Talked to Maribel. sp 21:40 Blood Culture Adult (2) Sent. rv1 21:40 Lactate w/ 2H reflex if indic. Sent. rv1 21:40 Protime (+inr) Sent. rv1 21:40 Ptt, Activated Sent. rv1 21:45 Blood Culture Adult (2) Sent. tl4 21:45 Lactate w/ 2H reflex if indic. Sent. tl4 21:45 Protime (+inr) Sent. tl4 21:45 Ptt, Activated Sent. tl4 23:[id number] Kwaku Collins accepted pt to the [facility] Maribel Perez RN TC admin sp approval 2312 room 2142 report number [phone] fax [phone]. 23:51 Patient transferred, IV remains in place. tl4 11/05 00:01 Olayinka Jackson unable to do transfer per Iftikhar called [facility] will be here in 30 min sp to transfer pt. 00:08 Report received from roni pressley assuming care of pt at this time. bm8 Administered Medications: 11/04 20:14 Drug: Ketorolac IVP 15 mg IVP once Route: IVP; Site: right forearm; tl4 21:46 Follow up: Response: No adverse reaction; Pain is decreased tl4 20:14 Drug: NS 0.9% IV 1000 ml IV at 1 bolus Per protocol; 1000 mL bolus Route: IV; Rate: 1 tl4 bolus; Site: right forearm; Delivery: Primary tubing; 21:45 Follow up: Response: No adverse reaction; IV Status: Completed infusion; IV Intake: tl4 1000ml 21:47 Drug: Piperacillin-Tazobactam IVPB 3.375 grams IVPB once over 60 mins; (mix in NS 100 tl4 mL) Route: IVPB; Infused Over: 60 mins; Site: right forearm; Delivery: Primary tubing; 23:02 Follow up: Response: No adverse reaction; IV Status: Completed infusion; IV Intake: tl4 100ml 11/05 00:41 Follow up: Response: No adverse reaction; IV Status: Completed infusion; IV Intake: bm8 100ml 11/04 22:57 Drug: vancoMYCIN IVPB 1 grams IVPB once over 2 hrs Route: IVPB; Infused Over: 2 hrs; tl4 Site: right forearm; 11/05 00:41 Follow up: Response: No adverse reaction; IV Status: Completed infusion; IV Intake: bm8 250ml 00:33 Drug: morphine IVP or IV 4 mg IVP once over 4 mins Route: IVP; Infused Over: 4 mins; bm8 Site: right forearm; 00:40 Follow up: Response: Medication administered at discharge. bm8 Medication: 11/04 20:16 VIS not applicable for this client. tl4 Intake: 21:45 IV: 1000ml; Total: 1000ml. tl4 23:02 IV: 100ml; Total: 1100ml. tl4 04 00:41 IV: 250ml; Total: 1350ml. bm8 00:41 IV: 100ml; Total: 1450ml. bm8 Outcome: 11/04 21:21 ER care complete, transfer ordered by . rt 11/05 00:42 Transferred by ground EMS to [facility], Transfer form completed. bm8 X-rays sent w/ patient. Condition: stable Instructed on the need for transfer, Demonstrated understanding of instructions, follow-up care, medications, 00:42 Patient left the ED. bm8 Signatures: Dispatcher [employer] EDMS Nicole Peralta, Adrienne, Reg Reg mr Elie Pierson MD MD rt Payton Benton rv1 Buddy Clifford RN RN tl4 Timoteo Owens RN RN bm8 Corrections: (The following items were deleted from the chart) 11/04 23:23 23:17 Reassessment: Patient and/or family updated on plan of care and expected tl4 duration. Pain level reassessed. Patient is alert, oriented x 3, equal unlabored respirations, skin warm/dry/pink. Patient states symptoms have improved. tl4
--- NOTE | 2023-11-05 21:21 | EDPHYS ---
Physician Documentation [facility] Name: Juan Manuel Arciniega Jr Age: 47 yrs Sex: Male : 1975 Arrival Date: 11/05/2023 Time: 18:47 Bed 19 Private MD: Derek Kern C ED Physician Elie Pierson HPI: 11/04 19:24 This 47 yrs old Male presents to ER via Ambulatory with complaints of rt Dizziness, Breathing Difficulty, Headache. 19:25 Patient had a recent cholecystectomy performed about 2 weeks ago. Patient was rt ultimately sent home, finishes course of antibiotics. Patient states that today, he developed a difficulty breathing, pain to the right upper quadrant, worse when he takes a deep breath. Patient states he is able to walk a few steps without becoming short of breath. Denies nausea, vomiting. Denies other acute complaints at this time, symptoms are moderate in severity, no other aggravating or alleviating factors.. Historical: - Allergies: 19:04 No Known Allergies; bm8 - Home Meds: 19:04 bupropion HCl 150 mg Oral tablet, sustained-release 12 hr 1 tab once [Active]; bm8 escitalopram oxalate 20 mg oral tablet 1 tab once [Active]; omeprazole 20 mg Oral capsule,delayed release (e.c.) 1 cap once [Active]; - PMHx: 19:06 Anxiety; gerd (Anxiety); bm8 - PSHx: 19:06 Cholecystectomy; bm8 - Immunization history:: Adult Immunizations up to date. - Infectious Disease History:: Denies. - Social history:: Smoking status: Patient denies any tobacco usage or history of. - Family history:: not pertinent. ROS: 19:25 Constitutional: Negative for fever, chills, and weight loss, Cardiovascular: Negative rt for chest pain, palpitations, and edema, MS/Extremity: Negative for injury and deformity, Skin: Negative for injury, rash, and discoloration, Neuro: Negative for headache, weakness, numbness, tingling, and seizure, Psych: Negative for depression, anxiety, suicide ideation, homicidal ideation, and hallucinations, 19:25 Respiratory: Positive for shortness of breath, Negative for cough, 19:25 Abdomen/GI: Positive for abdominal pain, Negative for nausea and vomiting, Exam: 19:25 Constitutional: This is a well developed, well nourished patient who is awake, alert, rt and in no acute distress. Head/Face: Normocephalic, atraumatic. Chest/axilla: Normal chest wall appearance and motion. Nontender with no deformity. No lesions are appreciated. Cardiovascular: Regular rate and rhythm with a normal S1 and S2. No gallops, murmurs, or rubs. Normal PMI, no JVD. No pulse deficits. Respiratory: Lungs have equal breath sounds bilaterally, clear to auscultation and percussion. No rales, rhonchi or wheezes noted. No increased work of breathing, no retractions or nasal flaring. Skin: Warm, dry with normal turgor. Normal color with no rashes, no lesions, and no evidence of cellulitis. MS/ Extremity: Pulses equal, no cyanosis. Neurovascular intact. Full, normal range of motion. Neuro: Awake and alert, GCS 15, oriented to person, place, time, and situation. Cranial nerves II-XII grossly intact. Motor strength 5/5 in all extremities. Sensory grossly intact. Cerebellar exam normal. Normal gait. 19:25 Abdomen/GI: Surgical sites appear to be well-healed, no focal areas of abdominal tenderness, no distention, 20:20 ECG was reviewed by the Attending Physician. rt Vital Signs: 19:02 BP 122 / 77; Pulse 104; Resp 18; Temp 99.9; Pulse Ox 94% on R/A; Weight 131.54 kg; bm8 Height 5 ft. 9 in. ; Pain 6/10; 20:18 BP 109 / 74; Pulse 99; Resp 16; Pulse Ox 97% on R/A; tl4 21:00 BP 104 / 67; Pulse 92; Resp 16; Pulse Ox 96% on R/A; tl4 22:00 BP 101 / 64; Pulse 83; Resp 25; Pulse Ox 95% ; Pain 8/10; tl4 23:22 BP 98 / 65; Pulse 82; Resp 16; Pulse Ox 94% ; Pain 8/10; tl4 08 00:00 BP 99 / 62; Pulse 81; Resp 20; Temp 99.9; Pulse Ox 94% ; Pain 4/10; bm8 11/04 19:02 Body Mass Index 42.83 (131.54 kg, 175.26 cm) 8 11/04 19:02 Pain Scale: Adult bm8 22:00 Pain Scale: Adult tl4 23:22 Pain Scale: Adult tl4 11/05 00:00 Pain Scale: Adult bm8 Hilton Coma Score: 00:00 Eye Response: spontaneous(4). Motor Response: obeys commands(6). Verbal Response: bm8 oriented(5). Total: 15. MDM: 11/04 19:09 Patient medically screened. rt 21:22 Differential diagnosis: Postoperative abscess, pulmonary embolism, pneumonia. Data rt reviewed: vital signs, nurses notes, lab test result(s), EKG, radiologic studies. Consideration of Admission/Observation Patient requires transfer. Management of patient was discussed with the following: Ic Design Engineer: Discussed with Dr. Hoff, states that patient needs interventional radiology drainage and transfer.. I considered the following discharge prescriptions or medication management in the emergency department Medications were administered in the Emergency Department. See MAR. Independent interpretation of the following test(s) in the Emergency Department CT Scan: My interpretation is Abscess seen on interpretation of CT scan images. Counseling: I had a detailed discussion with the patient and/or guardian regarding the historical points, exam findings, and any diagnostic results supporting the discharge/admit diagnosis, lab results, radiology results, the need to transfer to another facility. Response to treatment: the patient's symptoms have mildly improved after treatment. 11/04 19:24 Order name: Basic Metabolic Panel; Complete Time: 20:29 rt 11/04 19:24 Order name: CBC with Diff; Complete Time: 20:29 rt 11/04 19:24 Order name: LFT's; Complete Time: 20:29 rt 11/04 19:24 Order name: Magnesium; Complete Time: 20:29 rt 11/04 19:24 Order name: NT PRO-BNP; Complete Time: 20:29 rt 11/04 19:24 Order name: Troponin HS; Complete Time: 20:29 rt 11/04 19:24 Order name: Lipase; Complete Time: 20:29 rt 11/04 19:24 Order name: UAM; Complete Time: 20:29 rt 11/04 21:12 Order name: Blood Culture Adult (2) rt 11/04 21:12 Order name: Lactate w/ 2H reflex if indic.; Complete Time: 22:12 rt 11/04 21:12 Order name: Protime (+inr); Complete Time: 22:03 rt 11/04 21:12 Order name: Ptt, Activated; Complete Time: 22:03 rt 11/04 19:24 Order name: CT Chest For PE Angio; Complete Time: 21:03 rt 11/04 19:24 Order name: CT Abd/Pelvis - IV Contrast Only; Complete Time: 21:03 rt 11/04 19:24 Order name: Cardiac monitoring; Complete Time: 19:35 rt 11/04 19:24 Order name: EKG - Nurse/Tech; Complete Time: 20:20 rt 11/04 19:24 Order name: IV Saline Lock; Complete Time: 19:35 rt 11/04 19:24 Order name: Labs collected and sent; Complete Time: 19:35 rt 11/04 19:24 Order name: O2 Per Protocol; Complete Time: 19:35 rt 11/04 19:24 Order name: O2 Sat Monitoring; Complete Time: 19:35 rt 11/04 21:12 Order name: IV Saline Lock - Large Bore; Complete Time: 21:40 rt 11/04 21:12 Order name: Vital Signs; Complete Time: 21:40 rt EC:20 Rate is 97 beats/min. Rhythm is regular, Normal Sinus Rhythm with No ectopy. QRS [place] rt is Normal. [place] interval is normal. QRS interval is normal. QT interval is normal. No Q waves. T waves are Normal. No ST changes noted. Interpreted by me. Administered Medications: 20:14 Drug: Ketorolac IVP 15 mg IVP once Route: IVP; Site: right forearm; tl4 21:46 Follow up: Response: No adverse reaction; Pain is decreased tl4 20:14 Drug: NS 0.9% IV 1000 ml IV at 1 bolus Per protocol; 1000 mL bolus Route: IV; Rate: 1 tl4 bolus; Site: right forearm; Delivery: Primary tubing; 21:45 Follow up: Response: No adverse reaction; IV Status: Completed infusion; IV Intake: tl4 1000ml 21:47 Drug: Piperacillin-Tazobactam IVPB 3.375 grams IVPB once over 60 mins; (mix in NS 100 tl4 mL) Route: IVPB; Infused Over: 60 mins; Site: right forearm; Delivery: Primary tubing; 23:02 Follow up: Response: No adverse reaction; IV Status: Completed infusion; IV Intake: tl4 100ml 11/05 00:41 Follow up: Response: No adverse reaction; IV Status: Completed infusion; IV Intake: bm8 100ml 11/04 22:57 Drug: vancoMYCIN IVPB 1 grams IVPB once over 2 hrs Route: IVPB; Infused Over: 2 hrs; tl4 Site: right forearm; 11/05 00:41 Follow up: Response: No adverse reaction; IV Status: Completed infusion; IV Intake: bm8 250ml 00:33 Drug: morphine IVP or IV 4 mg IVP once over 4 mins Route: IVP; Infused Over: 4 mins; bm8 Site: right forearm; 00:40 Follow up: Response: Medication administered at discharge. bm8 Disposition Summary: 11/05/23 21:21 Transfer Ordered Notes: Transfer Location: [facility] rt Reason: Higher level of care rt Condition: Stable rt Problem: new rt Symptoms: have improved rt Accepting Physician: (11/06/23 00:42) bm8 Diagnosis - Postoperative abscess rt - Sepsis rt Forms: - Medication Reconciliation Form rt - SBAR form rt Signatures: Dispatcher [employer] Elie Hinojosa MD MD rt Buddy Clifford RN RN tl4 Timoteo Owens, RN RN bm8 Corrections: (The following items were deleted from the chart) 11/04 19:24 19:24 BASIC METABOLIC PANEL+C.LAB.BRZ ordered. EDMS EDMS 19:24 19:24 CBC+H.LAB.BRZ ordered. EDMS EDMS 19:24 19:24 HEPATIC FUNCTION+C.LAB.BRZ ordered. EDMS EDMS 19:24 19:24 MAGNESIUM+C.LAB.BRZ ordered. EDMS EDMS 19:24 19:24 PROBNP+C.LAB.BRZ ordered. EDMS EDMS 19:24 19:24 Troponin High Sensitivity+C.LAB.BRZ ordered. EDMS EDMS 19:24 19:24 LIPASE+C.LAB.BRZ ordered. EDMS EDMS 19:24 19:24 Urinalysis W/Microscopic+U.LAB.BRZ ordered. EDMS EDMS 19:25 19:24 Chest For PE Angio+CT.RAD.BRZ ordered. EDMS EDMS 19:25 19:25 Abdomen Pelvis W Con+CT.RAD.BRZ ordered. EDMS EDMS 21:12 21:12 BLOOD CULTURE*+BA.LAB.BRZ ordered. EDMS EDMS : 21:12 LACTATE+C.LAB.BRZ ordered. EDMS EDMS : 21:12 PROTIME (+INR)+COAG.LAB.BRZ ordered. EDMS EDMS : 21:12 PTT, ACTIVATED+COAG.LAB.BRZ ordered. EDMS EDMS 21:45 21:12 Accucheck ordered. rt tl4 11/05 00:42 04 21:21 Dr. guzman bm8
[2023-11-05] MEDS ORDERED: NA CHLORIDE 0.9% 100 ML ONE (21:25)
[2023-11-05] MEDS ORDERED: PIPERACIL/TAZO 3.375 GM VIAL IV ONE (21:25)
[2023-11-05 22:01] LABS: PT Prothrombin Time 14.4 SECONDS (9.5-12.5); PTT, Activated Partial Thromb 30.2 SECONDS (24.3-36.9); Protime INR 1.32
[2023-11-05] MEDS ORDERED: NA CHLORIDE 0.9% 250 ML ONE (22:18)
[2023-11-05] MEDS ORDERED: VANCOMYCIN 1 GM/VIAL ONE (22:18)
[2023-11-06] MEDS ORDERED: MORPHINE 4 MG/ML SYR ONE (00:25)
[2023-11-06 08:28] VITALS: BP 99/62; TEMP 99.9; O2SAT 94
--- NOTE | 2023-11-06 12:41 | EKG ---
Test Date: 2023-11-05 Test Time: 20:17:41 Behavior Clinician: RV MEASUREMENT RESULTS: Intervals: Rate: 97 WI: 142 QRSD: 92 QT: 332 QTc: 421 Daniels: P: 48 WI: 142 QRS: 67 T: 6 INTERPRETIVE STATEMENTS: Normal sinus rhythm Normal ECG Compared to ECG 10/20/2023 10:12:08 No significant changes Electronically Signed On 11-06-23 12:40:08 CDT by Devonte Mcdonald
== END 2023-11-06 00:42 | disposition short-term general hospital (02) ==
LOC: ER 18:47
DX: T81.49XA Infection following a procedure, other surgical site, initial encounter (principal); A41.9 Sepsis, unspecified organism; Z90.49 Acquired absence of other specified parts of digestive tract; F41.9 Anxiety disorder, unspecified
CPT/HCPCS: 96365; 96361; 93005; 87040 ×2; 85025; 81001; 80048; 36415; 83735; 85610; 80076; 83605; 85730; 84484; 83690; 83880; 71275; 74177; 96375; 99285; 96366; Q9967; J2543; J7050; J7030

== ENCOUNTER 2023-12-08 01:21 | Emergency (ER) | payer BC ==
[2023-12-08] MEDS ORDERED: ONDANSETRON 4 MG/2 ML VIAL ONE (01:44)
[2023-12-08] MEDS ORDERED: KETOROLAC 30 MG/ML INJ ONE (01:44)
[2023-12-08] MEDS ORDERED: MORPHINE 4 MG/ML SYR ONE (01:44)
[2023-12-08] MEDS ORDERED: NA CHLORIDE 0.9% 1,000 ML ONE (01:45)
[2023-12-08 01:51] LABS: Absolute Eosinophils 0.3 K/uL (0-0.5); Absolute Lymphocytes (CBC) 1.2 K/uL (0.7-4.9); Absolute Monocytes 0.6 K/uL (0.1-1.3); Absolute Neutrophil 7.9 K/uL (1.8-8.0); Basophils % 0.5 % (0-1.3); Eosinophils % 2.7 % (0-4.4); Hematocrit 40.5 % (39.6-49.0); Hemoglobin 13.3 g/dL (13.6-17.9); Lymphocytes % 12.4 % (15.3-44.8); MCH 29.5 pg (27.0-35.0); MCHC 32.8 g/dL (32.0-36.0); MCV 90.1 fL (80-100); MPV 8.1 fL (7.6-11.3); Monocytes % 5.9 % (3.3-12.3); Neutrophils % 78.5 % (41.7-73.7); Platelets 246 thou/uL (152-406); RBC Red Blood Cell Count 4.49 M/uL (4.33-5.43); Red Cell Distribution Width 15.3 % (12.1-15.2)
[2023-12-08 02:07] LABS: Albumin 3.5 g/dL (3.4-5.0); Albumin/Globulin Ratio 0.8 (1.1-1.8); Anion Gap 8.7 mEq/L (5.0-15.0); Bilirubin Total 0.5 mg/dL (0.2-1.0); Globulin 4.5 g/dL (2.3-3.5); Potassium 3.7 mEq/L (3.5-5.1)
[2023-12-08 02:57] LABS: Sqamous Epithelial <5 /HPF (None Seen); Urine Bacteria None Seen /HPF (<20); Urine Bilirubin NEGATIVE (Negative); Urine Blood Trace (Negative); Urine Clarity Clear (Clear); Urine Color Light-Yellow (Yellow); Urine Culture Reflex Order NOT NEEDED; Urine Glucose NEGATIVE (Negative); Urine Ketones TRACE (Negative); Urine Microscopic Reflex YN ORDER UMIC; Urine Mucus Slight /HPF (None Seen); Urine Nitrite NEGATIVE (Negative); Urine Protein NEGATIVE (Negative); Urine RBC <5 /HPF (None Seen); Urine Urobilinogen Normal (Normal); Urine WBC <5 /HPF (<5); Urine WBC Clump Rare /HPF (None Seen); Urine pH 6.5 (5.0-7.0)
[2023-12-08 03:10] LABS: Specific Gravity 1.028 (1.005-1.030)
--- NOTE | 2023-12-08 03:24 | ER ---
Nurse's Notes [facility] Name: Juan Manuel Arciniega Jr Age: 47 yrs Sex: Male : 1975 Arrival Date: 12/08/2023 Time: 01:21 Bed 20 Private MD: Derek Kern C Diagnosis: Diverticulitis of large intestine without perforation or abscess without bleeding Presentation: 12/07 01:24 Chief complaint: Patient states: periumbilical to lower abdominal pain of 8,onset 1200 pf1 yesterday. Patient stated took Pepto and Clearlax [employer]. 01:24 Coronavirus screen: Vaccine status: Patient reports being unvaccinated. Client denies pf1 travel out of the [place] in the last 14 days. At this time, the client does not indicate any symptoms associated with coronavirus-19. Ebola Screen: Patient negative for fever greater than or equal to 101.5 degrees Fahrenheit, and additional compatible Ebola Virus Disease symptoms. Initial Sepsis Screen: Does the patient meet any 2 criteria? No. Patient's initial sepsis screen is negative. Does the patient have a suspected source of infection? No. Patient's initial sepsis screen is negative. Risk Assessment: Do you want to hurt yourself or someone else? Patient reports no desire to harm self or others. Onset of symptoms was December 07, 2023. Care prior to arrival: Medication(s) given: Pepto and Clearlax. 01:24 Method Of Arrival: Ambulatory pf1 01:24 Acuity: SYLWIA 3 pf1 Triage Assessment: 01:25 General: Appears in no apparent distress. uncomfortable, well groomed, well developed, pf1 Behavior is calm, cooperative, appropriate for age, quiet. 01:25 Pain: Complains of pain in abdomen Pain began 1 day ago. GI: Abdomen is round pf1 non-distended, Reports lower abdominal pain. Historical: - Allergies: 01:35 No Known Allergies; pf1 - PMHx: 01:35 Anxiety; GERD (Anxiety); pf1 - PSHx: 01:35 Cholecystectomy; pf1 01:37 stent x2 placed to biliary duct; pf1 - Immunization history:: Adult Immunizations not up to date, Client reports having NOT received the Covid vaccine. Last tetanus immunization: > 10 years ago Flu vaccine is not up to date. - Infectious Disease History:: Denies. - Social history:: Smoking status: Patient denies any tobacco usage or history of. Patient uses alcohol, but reports only rare drinking. Patient/guardian denies using street drugs. Screenin:37 [facility] ED Fall Risk Assessment (Adult) History of falling in the last 3 months, cm10 including since admission No falls in past 3 months (0 pts) Confusion or Disorientation No (0 pts) Intoxicated or Sedated No (0 pts) Impaired Gait No (0 pts) Mobility Assist Device Used No (0 pt) Altered Elimination No (0 pt) Score/Fall Risk Level 0 - 2 = Low Risk Oriented to surroundings, Maintained a safe environment, Hourly rounding (assess needs \T\ fall precautionary measures) done. Abuse screen: Denies threats or abuse. Denies injuries from another. Nutritional screening: No deficits noted. Tuberculosis screening: No symptoms or risk factors identified. Assessment: 01:35 General: Appears in no apparent distress. uncomfortable, Behavior is calm, cooperative. cm10 Pain: Complains of pain in umbilical area Pain radiates to right lower quadrant Pain currently is 8 out of 10 on a pain scale. Quality of pain is described as sharp, Pain began 2-3 days ago. Neuro: No deficits noted. Level of Consciousness is awake, alert, obeys commands, Oriented to person, place, time, situation. Respiratory: No deficits noted. Airway is patent Respiratory effort is even, unlabored, Respiratory pattern is regular, symmetrical. GI: Abdomen is non-distended, Abdomen is tender to palpation in umbilical area and right lower quadrant. Derm: No deficits noted. Skin is intact. Musculoskeletal: No deficits noted. Range of motion: intact in all extremities. 03:11 Reassessment: Patient appears in no apparent distress at this time. No changes from cm10 previously documented assessment. Patient and/or family updated on plan of care and expected duration. Pain level reassessed. Patient is alert, oriented x 3, equal unlabored respirations, skin warm/dry/pink. Vital Signs: 01:24 BP 118 / 83; Pulse 80; Resp 18; Temp 98; Pulse Ox 95% on R/A; Weight 131.54 kg; Height pf1 5 ft. 9 in. ; Pain 8/10; 02:00 BP 110 / 71; Pulse 71; Resp 18; Pulse Ox 93% on R/A; cm10 02:24 BP 113 / 71; Pulse 78; Resp 18; Pulse Ox 92% ; cm10 03:00 BP 127 / 89; Pulse 72; Resp 18; Pulse Ox 92% ; cm10 01:24 Body Mass Index 42.83 (131.54 kg, 175.26 cm) pf1 01:24 Pain Scale: Adult pf1 ED Course: 01:23 Patient arrived in ED. mr 01:23 Derek Kern MD is Private Physician. mr 01:23 Elie Pierson MD is Attending Physician. rt 01:30 Triage completed. pf1 01:31 Maribel Edwards, RONI is Primary Nurse. cm10 01:31 Patient has correct armband on for positive identification. Bed in low position. Call cm10 light in reach. Side rails up X2. Provided Education on: ER process and procedures. Pulse ox on. NIBP on. 01:32 Initial lab(s) drawn, by me, sent to lab. Inserted saline lock: 20 gauge in right cm10 wrist, using aseptic technique. Blood collected. 01:54 Pt visited by significant other. cm10 01:54 Door closed. Noise minimized. cm10 02:[address] via stretcher. cm10 02:[address] back from CT. cm10 02:37 Abdomen In Process Unspecified. EDMS 02:43 Urinalysis w/ reflexes Sent. cm10 03:13 ED physician to see patient. cm10 03:39 Arm band placed on. cm10 03:39 No provider procedures requiring assistance completed. IV discontinued, intact, cm10 bleeding controlled, No redness/swelling at site. Pressure dressing applied. Administered Medications: 01:51 Drug: morphine IVP or IV 4 mg IVP once over 4 mins Route: IVP; Infused Over: 4 mins; cm10 Site: right wrist; 02:43 Follow up: Response: No adverse reaction; Pain is decreased cm10 01:51 Drug: Ondansetron IVP 4 mg IVP once; over 2 minutes Route: IVP; Site: right wrist; cm10 02:43 Follow up: Response: No adverse reaction cm10 01:51 Drug: NS 0.9% IV 1000 ml IV at 1 bolus Per protocol; 1000 mL bolus Route: IV; Rate: 1 cm10 bolus; Site: right wrist; 03:22 Follow up: Response: No adverse reaction; IV Status: Completed infusion; IV Intake: cm10 1000ml 01:52 Drug: Ketorolac IVP 15 mg IVP once Route: IVP; Site: right wrist; cm10 02:43 Follow up: Response: No adverse reaction; Pain is decreased cm10 03:34 Drug: Amoxicillin-Clavulanate PO 875 mg PO once Route: PO; cm10 03:38 Follow up: Response: No adverse reaction cm10 Medication: 01:37 VIS not applicable for this client. cm10 Intake: 03:22 IV: 1000ml; Total: 1000ml. cm10 Outcome: 03:24 Discharge ordered by MD. rt 03:39 Discharged to home ambulatory, with significant other, cm10 03:39 Condition: good 03:39 Discharge instructions given to patient, Instructed on discharge instructions, follow up and referral plans. medication usage, Demonstrated understanding of instructions, follow-up care, medications, Prescriptions given X 3, 03:39 Patient left the ED. cm10 Signatures: Dispatcher [employer] EDMS Adrienne Murray, Reg Reg Elie Rai MD MD rt Ashanti Lopes RN RN pf1 Maribel Edwards RN RN cm10 Corrections: (The following items were deleted from the chart) 01:35 01:35 Triage completed. pf1 pf1
--- NOTE | 2023-12-08 03:24 | EDPHYS ---
Physician Documentation [facility] Name: Juan Manuel Arciniega Jr Age: 47 yrs Sex: Male : 1975 Arrival Date: 12/08/2023 Time: 01:21 Bed 20 Private MD: Derek Kern C ED Physician Elie Pierson HPI: 12/07 01:50 This 47 yrs old Male presents to ER via Ambulatory with complaints of rt Abdominal Cramping. 01:50 Patient had a recent cholecystectomy complicated by postoperative abscess with possible rt biliary leak for which he was transferred to [facility], had a MARI drain that was placed, had endoscopic removal of retained stones. Was doing well postoperatively. States that today, he developed a crampy suprapubic pain. Denies nausea, vomiting, dysuria, other acute complaints, symptoms are moderate in severity, no other aggravating or alleviating factors.. Historical: - Allergies: 01:35 No Known Allergies; pf1 - PMHx: 01:35 Anxiety; GERD (Anxiety); pf1 - PSHx: 01:35 Cholecystectomy; pf1 01:37 stent x2 placed to biliary duct; pf1 - Immunization history:: Adult Immunizations not up to date, Client reports having NOT received the Covid vaccine. Last tetanus immunization: > 10 years ago Flu vaccine is not up to date. - Infectious Disease History:: Denies. - Social history:: Smoking status: Patient denies any tobacco usage or history of. Patient uses alcohol, but reports only rare drinking. Patient/guardian denies using street drugs. ROS: 01:50 Constitutional: Negative for fever, chills, and weight loss, Cardiovascular: Negative rt for chest pain, palpitations, and edema, Respiratory: Negative for shortness of breath, cough, wheezing, and pleuritic chest pain, MS/Extremity: Negative for injury and deformity, Skin: Negative for injury, rash, and discoloration, Neuro: Negative for headache, weakness, numbness, tingling, and seizure, 01:50 Abdomen/GI: Positive for abdominal pain, Negative for nausea and vomiting, Exam: 01:50 Constitutional: This is a well developed, well nourished patient who is awake, alert, rt and in no acute distress. Head/Face: Normocephalic, atraumatic. Chest/axilla: Normal chest wall appearance and motion. Nontender with no deformity. No lesions are appreciated. Cardiovascular: Regular rate and rhythm with a normal S1 and S2. No gallops, murmurs, or rubs. Normal PMI, no JVD. No pulse deficits. Respiratory: Lungs have equal breath sounds bilaterally, clear to auscultation and percussion. No rales, rhonchi or wheezes noted. No increased work of breathing, no retractions or nasal flaring. Skin: Warm, dry with normal turgor. Normal color with no rashes, no lesions, and no evidence of cellulitis. MS/ Extremity: Pulses equal, no cyanosis. Neurovascular intact. Full, normal range of motion. Neuro: Awake and alert, GCS 15, oriented to person, place, time, and situation. Cranial nerves II-XII grossly intact. Motor strength 5/5 in all extremities. Sensory grossly intact. Cerebellar exam normal. Normal gait. 01:50 Abdomen/GI: Surgical incisions appear to be well-healed, mild suprapubic tenderness without rebound, guarding, distention, no focal right upper quadrant tenderness, Vital Signs: 01:24 BP 118 / 83; Pulse 80; Resp 18; Temp 98; Pulse Ox 95% on R/A; Weight 131.54 kg; Height pf1 5 ft. 9 in. ; Pain 8/10; 02:00 BP 110 / 71; Pulse 71; Resp 18; Pulse Ox 93% on R/A; cm10 02:24 BP 113 / 71; Pulse 78; Resp 18; Pulse Ox 92% ; cm10 03:00 BP 127 / 89; Pulse 72; Resp 18; Pulse Ox 92% ; cm10 01:24 Body Mass Index 42.83 (131.54 kg, 175.26 cm) pf1 01:24 Pain Scale: Adult pf1 MDM: 01:33 Patient medically screened. rt 03:27 Differential diagnosis: Surgical complication, bili Afia, diverticulitis, UTI. Data rt reviewed: vital signs, nurses notes, lab test result(s), radiologic studies. Consideration of Admission/Observation Escalation of care including admission/observation considered. Uncomplicated diverticulitis, no signs of surgical complication, no indications for admission at this time.. I considered the following discharge prescriptions or medication management in the emergency department Medications were administered in the Emergency Department. See MAR. Independent interpretation of the following test(s) in the Emergency Department CT Scan: My interpretation is No bowel obstruction seen on interpretation of CT scan images. Counseling: I had a detailed discussion with the patient and/or guardian regarding the historical points, exam findings, and any diagnostic results supporting the discharge/admit diagnosis, lab results, radiology results, the need for outpatient follow up, to return to the emergency department if symptoms worsen or persist or if there are any questions or concerns that arise at home. Response to treatment: the patient's symptoms have markedly improved after treatment. ED course: Patient was informed to have colonoscopy after treatment completion.. He has a colonoscopy scheduled in a few months. Believe this is appropriate at this time.. 12/07 01:34 Order name: CBC with Diff; Complete Time: 02:46 cm10 12/07 01:34 Order name: CMP; Complete Time: 02:46 cm10 12/07 01:34 Order name: Lipase; Complete Time: 02:46 cm10 12/07 01:34 Order name: Urinalysis w/ reflexes; Complete Time: 03:12 cm10 12/07 01:54 Order name: Abdomen EDMS 12/07 01:34 Order name: IV Saline Lock; Complete Time: 01:34 cm10 12/07 01:34 Order name: Labs collected and sent; Complete Time: :34 cm10 Administered Medications: 01:51 Drug: morphine IVP or IV 4 mg IVP once over 4 mins Route: IVP; Infused Over: 4 mins; cm10 Site: right wrist; 02:43 Follow up: Response: No adverse reaction; Pain is decreased cm10 01:51 Drug: Ondansetron IVP 4 mg IVP once; over 2 minutes Route: IVP; Site: right wrist; cm10 02:43 Follow up: Response: No adverse reaction cm10 01:51 Drug: NS 0.9% IV 1000 ml IV at 1 bolus Per protocol; 1000 mL bolus Route: IV; Rate: 1 cm10 bolus; Site: right wrist; 03:22 Follow up: Response: No adverse reaction; IV Status: Completed infusion; IV Intake: cm10 1000ml 01:52 Drug: Ketorolac IVP 15 mg IVP once Route: IVP; Site: right wrist; cm10 02:43 Follow up: Response: No adverse reaction; Pain is decreased cm10 03:34 Drug: Amoxicillin-Clavulanate PO 875 mg PO once Route: PO; cm10 03:38 Follow up: Response: No adverse reaction cm10 Disposition Summary: 12/08/23 03:24 Discharge Ordered Notes: Location: Home rt Problem: new rt Symptoms: have improved rt Condition: Stable rt Diagnosis - Diverticulitis of large intestine without perforation or abscess without bleeding rt Followup: rt - With: Private Physician - When: 10 - 14 days - Reason: Discharge Instructions: - Discharge Summary Sheet rt - Diverticulitis rt Forms: - Medication Reconciliation Form rt - Antibiotic Education rt - Prescription Opioid Use rt - Patient Portal Instructions rt - Leadership Thank You Letter rt - Work release form cm10 - Family Work Release cm10 Prescriptions: - ondansetron 4 mg Oral Tablet,disintegrating - take 1 tablet ORAL route every 6 hours as needed for nausea; 15 tablet; rt Refills: 0, Product Selection Permitted - Augmentin 875-125 mg Oral Tablet - take 1 tablet ORAL route every 12 hours for 10 days; 20 tablet; Refills: 0, rt Product Selection Permitted - Tramadol 50 mg Oral Tablet - take 1 tablet ORAL route every 8 hours as needed; 12 tablet; Refills: 0, rt Product Selection Permitted Signatures: Dispatcher [employer] EDMS Elie Pierson MD MD rt Ashanti Lopes RN RN pf1 Maribel Edwards RN RN cm10 Corrections: (The following items were deleted from the chart) 01:34 01:34 CBC+H.LAB.BRZ ordered. EDMS EDMS 01:34 01:34 COMPREHENSIVE METABOLIC PANEL+C.LAB.BRZ ordered. EDMS EDMS 01:34 01:34 LIPASE+C.LAB.BRZ ordered. EDMS EDMS 01:34 01:34 Urinalysis+U.LAB.BRZ ordered. EDMS EDMS 01:54 01:40 Abdomen W/ Con+CT.RAD.BRZ ordered. EDMS EDMS
[2023-12-08] MEDS ORDERED: AMOX/K CLAV 875 MG TAB ONE (03:25)
[2023-12-08 03:46] VITALS: TEMP 98
[2023-12-08 04:11] VITALS: BP 127/89; O2SAT 92
--- NOTE | 2023-12-08 17:59 | RAD REPORT ---
EXAM DESCRIPTION: CT - Abdomen Pelvis W Contrast - 12/08/2023 6:51 am CLINICAL HISTORY: ABD PAIN COMPARISON: 11/05/2023 TECHNIQUE: CT of the abdomen and pelvis performed following IV administration of iodinated contras t. This exam was performed according to our departmental dose-optimization program, which includes au tomated exposure control, adjustment of the mA and/or kV according to patient size and/or use of iter ative reconstruction technique. FINDINGS: Lung Bases: Lung volumes. Right basilar subsegmental atelectasis. Bones: Multilevel degenerative endplate spondylosis, disc height narrowing, and facet arthropathy. Os teoarthritic change of the hips. Abdomen: Liver: Biliary stent in place. Minimal pneumobilia. No biliary dilatation. No focal hepatic mass iden tified. Gallbladder: Prior cholecystectomy. Spleen, Pancreas, and Adrenal Glands: The spleen, pancreas, and adrenal glands are unremarkable. Kidneys: No hydronephrosis or obstructing calculus. Vasculature: The aorta and IVC have normal caliber and position. The portal vein is patent. The pro ximal visceral and renal arteries are patent. Stomach: Small hiatal hernia. Other: No free intraperitoneal air. No free fluid or lymphadenopathy. Pelvis: Bladder: Mild wall thickening of the urinary bladder. Bowel: No dilated loops of large or small bowel. Short segment circumferential significant wall thi ckening of the distal descending colon with adjacent inflammatory change. Scattered diverticula of th e colon. Mild wall thickening of the sigmoid colon and rectum. Appendix: Normal appendix. Pelvis: Prostate is not enlarged. IMPRESSION: 1. Short segment circumferential significant wall thickening of the distal descending colon with adjacent inflammatory change. Mild wall thickening of the sigmoid colon and rectum. These findings could be seen with acute uncomplicated diverticulitis. Follow-up after acute illness to excl ude other causes of short segment bowel wall thickening recommended. 2. Biliary stent in place. No biliary dilatation. 3. Mild wall thickening of the urinary bladder. This could be seen with cystitis. 4. Small hiatal hernia. Electronically signed by: Fran Gusman DO 12/08/2023 02:57 AM CDT M Due to temporary technical issues with the PACS/Fluency reporting system, reports are being signed by the in house radiologists without review as a courtesy to insure prompt reporting. The interpreting radiologist is fully responsible for the content of the report.
== END 2023-12-08 03:39 | disposition home or self-care (01) ==
LOC: ER 01:21
DX: K57.32 Diverticulitis of large intestine without perforation or abscess without bleeding (principal); Z90.49 Acquired absence of other specified parts of digestive tract; Z28.310 Unvaccinated for COVID-19
CPT/HCPCS: 96361; 85025; 81001; 36415; 83690; 80053; 74177; 96375; 96374; 99285; Q9967; J2405; J7030